=== PATIENT | male | born 1940 | race Caucasian/White ===

== ENCOUNTER → 2023-11-03 10:22 | Outpatient (REF) | payer OTHER, SELFPAY | LOC: RCS 10:22 | PROVIDERS: ATTENDING PHYSICIAN Internal Medicine Cardiovascular Disease; FAMILY PHYSICIAN Family Medicine | DX: I35.0 Nonrheumatic aortic (valve) stenosis (principal); I34.0 Nonrheumatic mitral (valve) insufficiency | CPT/HCPCS: 93306; Q9957 ==

== ENCOUNTER → 2023-12-07 15:34 | Outpatient (REF) | payer OTHER, SELFPAY | LOC: HWRAD 15:34 | PROVIDERS: ATTENDING PHYSICIAN Internal Medicine Hematology & Oncology; FAMILY PHYSICIAN Family Medicine | DX: C61 Malignant neoplasm of prostate (principal); M85.88 Other specified disorders of bone density and structure, other site | CPT/HCPCS: 77080 ==

== ENCOUNTER 2024-02-05 09:04 | Outpatient (RCR) | payer OTHER, SELFPAY | END 2024-02-05 23:59 | disposition home or self-care (01) | LOC: RPT 09:04 | PROVIDERS: ATTENDING PHYSICIAN Radiology Radiation Oncology; FAMILY PHYSICIAN Family Medicine | DX: N39.41 Urge incontinence (principal); R15.9 Full incontinence of feces; C61 Malignant neoplasm of prostate; M62.89 Other specified disorders of muscle; Z73.6 Limitation of activities due to disability | CPT/HCPCS: 97140; 97162; 97530 ==

== ENCOUNTER 2024-03-06 12:08 | Outpatient (RCR) | payer OTHER, SELFPAY | END 2024-03-06 23:59 | disposition home or self-care (01) | LOC: RPT 12:08 | PROVIDERS: ATTENDING PHYSICIAN Radiology Radiation Oncology; FAMILY PHYSICIAN Family Medicine | DX: C61 Malignant neoplasm of prostate (principal); M62.89 Other specified disorders of muscle; N39.41 Urge incontinence; R15.9 Full incontinence of feces; Z73.6 Limitation of activities due to disability; R35.0 Frequency of micturition; I89.0 Lymphedema, not elsewhere classified | CPT/HCPCS: 97140; 97530 ==

== ENCOUNTER 2024-03-29 10:35 | Inpatient (IN) | payer OTHER, SELFPAY ==
[2024-03-29] VITALS (17 sets, daily range): BP systolic 125–152; BP diastolic 47–100; PULSE 70; O2SAT 95; BMI 27.8; BMI 27.4
[2024-03-29 07:02] LABS: % Basophils 0.5 % (0-2); % Eosinophils 2.5 % (0-6); % Immature Granulocytes 0.9 % (0-0.5); % Lymphocytes 13.9 % (20.5-51.1); % Monocytes 6.4 % (1.7-9.3); % Neutrophils 75.8 % (42.2-75.2); Absolute Eosinophils 0.1 10^3/uL (0-0.7); Absolute Lymphocytes 0.6 10^3/uL (1.2-3.4); Absolute Monocytes 0.3 10^3/uL (0.1-0.6); Absolute Neutrophils 3.3 10^3/uL (1.4-6.5); Hemoglobin 11.9 g/dL (13.0-18.0); Mean Corp Hgb Conc. 32.2 g/dL (33.0-37.0); Mean Corpuscular Hgb 29.1 pg (27.0-31.0); Mean Corpuscular Volume 90.5 fL (80.0-94.0); Mean Platelet Volume 10.3 fL (7.4-10.4); Nucleated Red Blood Cells % 0 % (-); Platelet Count 116 10^3/uL (130-400); Red Blood Cell Count 4.09 10^6/uL (4.70-6.10); Red Cell Dist. Width 14.6 % (11.5-14.5); White Blood Cell Count 4.4 10^3/uL (4.8-10.8)
[2024-03-29 07:08] LABS: ALT (SGPT) 34 U/L (0-50); AST (SGOT) 37 U/L (17-59); Albumin 3.9 g/dl (3.5-5.0); Alkaline Phosphatase 83 U/L (38-126); Blood Urea Nitrogen 24 mg/dl (9-20); Calcium 8.9 mg/dl (8.4-10.2); Carbon Dioxide 27 mmol/L (22-30); Chloride 108 mmol/L (98-107); Estimated Creatinine Clearance 48 ml/min; Glucose 111 mg/dl (70-99); Potassium 4.3 mmol/L (3.5-5.1); Sodium 147 mmol/L (135-145); Total Bilirubin 0.3 mg/dl (0.2-1.3); Total Protein 6.4 g/dl (6.3-8.2); eGFR > 60.00
[2024-03-29 07:19] LABS: NT-proBNP 7440 pg/ml; Troponin I 0.022 ng/ml
--- NOTE | 2024-03-29 08:12 | ED.GENMED ---
History of Present Illness
General
Chief Complaint: Breathing Problem
Source: patient and spouse
Time Seen by Provider: 03/29/24 06:06
History of Present Illness
History of Present Illness:
84-year-old male presents after he became more short of breath last night. Patient does have a history of COPD. The patient states he has been more short of breath over the last 2 to 3 days. Last night it was worse. It is worse when he lays
back. No leg swelling. No chest pain. Little bit of dry cough. No fevers. No hemoptysis. He does wear oxygen at night at home. The patient also admits that NPT recently his heart rate has been slow. They discussed it with cardiology who was
planning on putting a Holter monitor on
Past History
Past History
ED Past Medical History: Cancer, COPD, CVA, HTN, Hypercholesterolemia, NIDDM and Psychiatric
ED Past Surgical History: Other (skin)
Social History
Tobacco: Former smoker
Alcohol: None
Drug: None
Personal:
Living: with family
Employment: Retired
Phy Exam
Physical Exam
Physical Exam:
CONSTITUTIONAL Patient alert and oriented to person, place and time. Well-appearing. Vital signs reviewed.
HEAD atraumatic, normocephalic.
EYES eyelids normal to inspection, Pupils equally round and reactive to light, Extraocular muscles intact, Conjunctiva normal, Sclera normal.
NECK normal range of motion, Trachea midline, no jugular venous distention.
RESPIRATORY CHEST No respiratory distress noted, Chest expansion equal, fine crackles at bilateral bases.
CARDIOVASCULAR regular rate and rhythm, Heart sounds normal.
ABDOMEN abdomen nontender, Bowel sounds normal. No distention.
BACK normal inspection, no obvious deformities
UPPER EXTREMITY range of motion normal, Motor strength normal, no cyanosis, no edema.
LOWER EXTREMITY range of motion normal, Motor strength normal, no cyanosis, no edema.
NEURO Speech normal, No focal motor deficits, Ward coma scale 15, Memory normal, Cranial Nerves intact to screening exam.
SKIN skin warm, dry, and normal in color.
Scores
Heart Failure Risk
Heart Failure Risk Score: Yes
History of Stroke or TIA: Yes
History of intubation for respiratory distress: No
Heart rate on ED arrival >/= 110: No
SaO2 <90% on arrival on room air: Yes
HR >/=110 during 3min walk test (or too ill to perform test): Yes
ECG has acute ischemic changes: No
Urea >/=12mmol/L (BUN 33.6mg/dL): No
Serum CO2>/=35mmol/L: No
Troponin I or T elevated to HI Level (0.4mg/dL): No
NT-proBNP >/=5,000ng/L (5,000pg/ml): Yes
HF Risk Score: 5
Admission Status: VERY HIGH RISK 39.8% Consider admission to hospital
Course
Orders/Labs/Results
Orders:
Orders
03/29/24 05:32
Electrocardiogram (*1) Urgent
Reason for Study: Other
Other Reason for Exam: Respiratory Distress
Cardiac Monitoring- Treatment ONCE
EKG- Treatment ONCE
IV Insert/Care/Rem.- Treatment PRN
CR Chest - 2 Views Urgent
Comment:
Reason For Exam: respiratory distress
O2 Therapy [RESP] Urgent
Titrate/Wean O2 to maintain O2 sat greater than (%): 93
Special Instructions: TO MAINTAIN CONTINUOUS O2 SATS >/= 93%
Pulse Ox/cont/shift [RESP] Urgent
Quantity: 1
Special Instructions: continuous pulse ox
03/29/24 05:42
Complete Blood Count/With Diff Urgent
Comprehensive Metabolic Panel Urgent
NT-proBNP Urgent
Troponin I Urgent
03/29/24 08:12
Dexamethasone Sod Phosphate [Decadron] 10 mg IV NOW STA
Furosemide [Lasix] 40 mg IV NOW STA
03/29/24 09:36
CARDIOLOGY CONSULT Routine
Consulting Provider: Lacey Ferro
Was physician already notified: Yes
PULMONARY CONSULT Routine
Consulting Provider: Ronni Lozano
Was physician already notified: Yes
03/29/24 09:47
Admit/Transfer Patient As Directed
Co-Sign Provider:
Level of Care: Inpatient admission
Assign to:: Telemetry
Physician / Group: lalo downs
Diagnosis: SOB, CHF, poss COPD
Reason for Telemetry: Subacute Heart Failure
Date to Stop Telemetry: 03/31/24
Time to Stop Telemetry: 11:00
Reason for Hospitalization: SOB, CHF, poss COPD
Expected length of stay greater than two midnights?: Yes
ELOS- Estimated Length of Stay in days: 2
I certify the patient meets the requirements for IP care: Yes
PRN Pain Medication Management As Directed
May give lesser potent ordered pain med per pt: Yes
preference::
Protocol:: Medication orders for pain may be administered in a
manner that supports deferring to patient preference
when the pt is:
- Requesting an ordered lesser potent pain medication.
Least to most potent pain medications are defined
as: acetaminophen < NSAID < tramadol < opioids
(morphine, oxycodone, hydromorphone).
- Requesting a lesser dose of the same medication IF
ORDERED.
- Requesting a less intrusive route of administration
if both routes are prescribed by the provider (PO <
IV).
03/29/24 09:51
Code Status As Directed
Resuscitation Status: Full Code
03/29/24 Lunch
Cholesterol Lowering
At Your Request: Full Participation
Cholesterol Lowering: Sodium, 2 Gram
03/29/24 10:37
Acetaminophen [Tylenol] 650 mg PO Q6HPRN PRN
Ipratropium/Albuterol Sulfate [Duoneb] 3 ml INH R Q4HPRN PRN
Ondansetron Injectable [Zofran] 4 mg IV Q6HPRN PRN
Oxycodone [Roxicodone] 5 mg PO Q6HPRN PRN
relugolix [Orgovyx] See Dose Instructions PO DAILY
03/29/24 10:37
HF DIETARY CONSULT Routine
HF EDUCATOR CONSULT Routine
Comment:
Activity As Directed
Activity Level: Ambulate
Intake/ Output As Directed
Frequency: Per unit guidelines
Patient Education As Directed
Type: CHF folder
Comment: give on admission. Document in Interdisciplinary Education record
Sleep Apnea Assessment by RN As Directed
Comment:
Physician Instructions:
Vital Signs As Directed
Frequency: Other
Additional Instructions:: Q12 or per unit guidelines if more frequent.
Weight As Directed
Frequency: Daily
Type of Scale: Standing Scale
Comment: Daily morning weight. If unable to stand, use balanced bed scale.
Weight As Directed
Frequency: Once
Type of Scale: Standing Scale
Comment: Upon Admission. If unable to stand, use balanced bed scale.
Pulse Ox/cont/shift [RESP] Routine
Quantity: 1
Special Instructions: Daily pulse oximetry at rest. If greater than 92% at rest also obtain pulse oximetry
while ambulating as tolerated.
Pt Eval And Treat Routine
Activity Level: Ambulate
03/29/24 11:00
Apixaban [Eliquis] 5 mg PO BID
Atorvastatin [Lipitor] 40 mg PO DAILY
Escitalopram Oxalate [Lexapro] 10 mg PO DAILY
Metoprolol Xl [Toprol Xl] 25 mg PO DAILY
03/29/24 11:30
Tamsulosin [Flomax] 0.4 mg PO BID
03/29/24 16:00
Furosemide [Lasix] 40 mg IV BID AT 0800,1600
03/30/24 06:00
Basic Metabolic Panel IN AM
Magnesium IN AM
03/30/24 08:00
Lisinopril [Zestril] 10 mg PO DAILY
03/31/24 06:00
Basic Metabolic Panel IN AM
03/31/24 11:00
DC Protocol for Telemetry ONCE
04/01/24 06:00
Basic Metabolic Panel IN AM
Abnormal Lab Results
03/29/24
05:42
WBC 4.4 L 10^3/uL
(4.8-10.8)
RBC 4.09 L 10^6/uL
(4.70-6.10)
Hgb 11.9 L g/dL
(13.0-18.0)
Hct 37.0 L %
(39.0-52.0)
MCHC 32.2 L g/dL
(33.0-37.0)
RDW 14.6 H %
(11.5-14.5)
Plt Count 116 L 10^3/uL
(130-400)
Absolute Lymphs (auto) 0.6 L 10^3/uL
(1.2-3.4)
Immature Gran % 0.9 H %
(0-0.5)
Neutrophils % 75.8 H %
(42.2-75.2)
Lymphocytes % 13.9 L %
(20.5-51.1)
Sodium 147 H mmol/L
(135-145)
Chloride 108 H mmol/L
(98-107)
BUN 24 H mg/dl
(9-20)
Glucose 111 H mg/dl
(70-99)
03/29/24 05:42
03/29/24 05:42
Vital Signs
Initial and Last Documented VS:
Initial Vital Signs
Temp Pulse Resp BP Pulse Ox
98.9 F 39 24 139/75 89
03/29/24 05:28 03/29/24 05:28 03/29/24 05:28 03/29/24 05:28 03/29/24 05:28
Last Documented Vital Signs
Temp Pulse Resp BP Pulse Ox
98.9 F 81 25 139/100 95
03/29/24 05:28 03/29/24 12:00 03/29/24 12:00 03/29/24 11:00 03/29/24 12:48
MDM/Problems Addressed
MDM/Problems Addressed:
Hypoxia, dyspnea, acute COPD, acute decompensated congestive heart failure
*Radiology
Radiology exam reviewed: preliminary read by ED provider (Bilateral interstitial infiltrates, suspected CHF)
*Pulse Oximetry
Patient hypoxic: no
*EKG
Interpreted by ED Provider?: Yes
Interpretation: abnormal
Rate: normal
Rhythm: sinus and PVC's
Ischemia: non-specific ST changes
*Building Services Technician Interpretation
Rate: normal
Interpretation: abnormal
Rhythm: sinus
*Critical Care Note
Total Time (30-74mins, 75-104mins- exclusive of procedures): Not Applicable
Data Reviewed
Review of Other/Old Records Reveals: Progress Notes and Discharge Summary (Previous discharge summary reviewed)
Source: patient and family
Prescriptions/Medications Considered But Not Given:
Considered antibiotics but afebrile, no infiltrates
Patient Management
Discussion with other providers: Hospitalist
Escalation/DeEscalation of care consider admission/obs:
Does have bilateral interstitial traits on chest x-ray. Question fibrosis versus CHF. BNP is elevated and has had a orthopnea. Trial IV Lasix plus IV Decadron in light of COPD history. Admit. Is slightly hypoxic. The patient did arrive in
[place] but now is just throwing occasional PVCs.
ED Attending Note
-
Portions of this chart may have been created with voice recognition software.� Occasional wrong word or��sound alike� substitutions may have occurred due to the inherent limitations of voice recognition software.
Discharge Plan
Departure
Patient Disposition: Admit
Date of Disposition: 03/29/24
Time of Disposition: 08:23
Admit to: Telemetry
Presentation/result/management discussed w/ accepting MD/DO: Hospitalist
Discharge Problem:
CHF (congestive heart failure), COPD (chronic obstructive pulmonary disease), Hypoxia
Interventions
Interventions:
*Risk Screen - Suicide Last Done: 03/29/24 05:51
*General Assessment Last Done: 03/29/24 05:51
*Neglect/Abuse Screening Last Done: 03/29/24 05:51
ED- Fall Risk Assessment Last Done: 03/29/24 05:51
*ED COVID-19 Vaccine History Last Done: 03/29/24 05:51
ED- Cardiac Assessment Last Done: 03/29/24 07:26
ED- Pulmonary Assessment Last Done: 03/29/24 07:26
[2024-03-29] MEDS: DECADRON 10 MG IV (08:27)
[2024-03-29] MEDS: LASIX 40 MG IV ×2 (08:27→16:28)
--- NOTE | 2024-03-29 09:40 | HPS.HSE ---
Family Physician
-
Family Physician: Glenn Hanson
Chief Complaint
-
Shortness of breath
History of Present Illness
84-year-old male with a past medical history of COPD, SAÚL on CPAP, coronary artery disease, severe aortic stenosis, prostate cancer, hypertension, and hyperlipidemia presents with a 1 day history of shortness of breath. Patient also reports
orthopnea, abdominal bloating, and a 4 pound weight gain. Denies paroxysmal nocturnal dyspnea. He also has a cough, which occurs mostly at night. He denies chest pain, lightheadedness, dizziness. No fever, no vomiting. No black or bloody
stools. He usually wears oxygen 2 L at night.
Medical History
Past Medical History
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
aortic stenosis, prostate cancer)
Past Surgical History: Reports None and Other (Mohs microsurgery of the right leg, cataract extraction, bilateral hernia repair as a child)
Social History
Tobacco: Former Smoker
Alcohol: Daily
Drug: None
Personal:
Living: With Family
Family History
Family History: Not pertinent
Allergies / Home Medications
Allergies reflects when Allergies were last updated in [facility].
Home Medications with original date entered in [facility]
Allergy/Medication List:
Allergies
Allergy/AdvReac Type Severity Reaction Status Date / Time
No Known Allergies Allergy Verified 03/29/24 05:28
Home Medications Table - record
�Medication �Instructions �Recorded �Confirmed
apixaban 5 mg tablet (Eliquis) 5 mg PO BID Blood Clot 10/17/22 03/29/24
Prevention/Tx
metoprolol succinate 25 mg 25 mg PO DAILY Heart 10/17/22 03/29/24
tablet,extended release 24 hr Disease/Condition
potassium chloride 20 mEq 20 meq PO DAILY #90 tabs 10/17/22 03/29/24
tablet,extended release
tamsulosin 0.4 mg capsule 0.4 mg PO BID Urinary Issue 10/17/22 03/29/24
albuterol sulfate 90 mcg/actuation 2 puff inhalation R Q4HPRN PRN 01/16/23 03/29/24
aerosol inhaler shortness of breath or wheezing
atorvastatin 40 mg tablet (Lipitor) 40 mg PO DAILY High Cholesterol 01/16/23 03/29/24
furosemide 40 mg tablet (Lasix) 40 mg PO DAILY Fluid 01/16/23 03/29/24
Retention/Swelling
escitalopram oxalate 10 mg tablet 10 mg PO DAILY Mental 06/09/23 03/29/24
Health/Anxiety
fluticasone fur. 100 mcg-umeclid 1 inh inhalation R DAILY 06/09/23 03/29/24
62.5 mcg-vilant 25 mcg Lung/Breathing Issues
inhalat.powder (Trelegy Ellipta)
lisinopril 10 mg tablet 10 mg PO DAILY Blood Pressure 06/09/23 03/29/24
relugolix 120 mg tablet (Orgovyx) 120 mg PO DAILY Cancer 06/09/23 03/29/24
Review of Systems
-
A 12 point ROS was completed and negative except as noted: Yes
Physical Exam
Vital Signs
Vital Signs
Temp Pulse Resp BP Pulse Ox
98.9 F 60 24 147/71 96
03/29/24 05:28 03/29/24 09:00 03/29/24 09:00 03/29/24 09:00 03/29/24 09:00
Physical Exam
General: Well Developed, Well Nourished and No Apparent Distress
HEENT: NormoCephalic, Anicteric and Moist mucous membranes
Respiratory: Crackles
GI: Soft, Non Tender, Non Distended and Normal Bowel Sounds
Musculoskeletal: No Clubbing, No Cyanosis, Edema, Left Lower Extremity and Edema, Right Lower Extremity
Neuro: Awake, Alert and Oriented
Psych: Calm
Laboratory Results
-
03/29/24 05:42
03/29/24 05:42
Laboratory Results
Total Bilirubin 0.3 mg/dl (0.2-1.3) 03/29/24 05:42
AST 37 U/L (17-59) 03/29/24 05:42
ALT 34 U/L (0-50) 03/29/24 05:42
Alkaline Phosphatase 83 U/L (38-126) 03/29/24 05:42
Troponin I 0.022 ng/ml 03/29/24 05:42
Impression/Plan
-
HPI: 84-year-old male with a past medical history of COPD, SAÚL on CPAP, coronary artery disease, severe aortic stenosis, prostate cancer, hypertension, and hyperlipidemia presents with a 1 day history of shortness of breath. Patient also reports
orthopnea, abdominal bloating, and a 4 pound weight gain. Denies paroxysmal nocturnal dyspnea. He also has a cough, which occurs mostly at night. He denies chest pain, lightheadedness, dizziness. No fever, no vomiting. No black or bloody
stools. He usually wears oxygen 2 L at night.
Assessment/plan:
#Acute heart failure with reduced ejection fraction
Echo 11/03/2023: EF 40 to 45%. Mildly reduced LV systolic function. Apical and inferoapical akinesis. Mild concentric LVH. Stage II DD. Severe aortic stenosis peak/mean gradient 68/441 mmHg, SHELLEY 0.8 cm�. Moderate TR.
Consult cardiology, diuresed with Lasix 40 mg IV twice daily, trend creatinine, trend daily weights
#Acute hypoxic respiratory insufficiency
Patient usually wears oxygen 2 L at night and as needed during the day
He is currently requiring 2 L, wean as tolerated
#Hypernatremia
Trend sodium with diuresis
#Acute on chronic COPD exacerbation
#Pulmonary fibrosis
Status post dexamethasone 10 mg IV x 1 in the ED
Consult pulmonology, continue bronchodilators
#Obstructive sleep apnea
CPAP HS
#Normocytic anemia
Trend hemoglobin
#Prostate cancer
Outpatient follow-up
#History of left ventricular apical thrombus in the past
Continue Eliquis
#Anxiety/depression
Continue SSRI
#BPH
Continue Flomax
DVT prophylaxis�Eliquis
Full code
Updated at bedside 03/29
Total time spent to see the patient on the floor, examine the patient, review data and lab results, discuss treatment plan with patient, nursing staff around 77 minutes.
--- NOTE | 2024-03-29 10:24 | CON.PUL ---
Consultation
Consultation Request
Date/Time Consultation Requested: 03/29/2024-10 AM
Date/Time Consultation Performed: 03/29/2024-11 AM
Requesting Provider: Hospitalist
Performing Provider: Dr. Lozano
Reason for Consultation: Shortness of breath
Medical History
-
Chief Complaint: Shortness of breath
History of Present Illness:
84-year-old male patient with underlying COPD on nocturnal oxygen followed by Dr. Henderson as well as hypertension, hyperlipidemia diabetes who was recently discharged from the hospital after pneumonia presents with increasing shortness of breath,
probable CHF and possible COPD exacerbation-pulmonary was consulted for possible COPD exacerbation 03/29/2024. Patient feels improved with diuresis and oxygen in the emergency room. He denies any chest pain, chest tightness, increased wheezing,
chronic chest congestion, productive cough, mopped assist, reflux, abdominal pain, and has trace lower extremity edema compared to his baseline.
Past Medical History
Past Medical History: None (COPD. Nocturnal hypoxemia on oxygen. SAÚL on CPAP. CVA. Hypertension. Hyperlipidemia. Diabetes. Anxiety. Prostate cancer. Hernia repair. Cataract surgery. Basal cell Mohs procedure.)
Social History
Tobacco: Former Smoker (79-nurq-g[employer] smoker-quit 30 years ago)
Alcohol: None
Drug: None
Personal:
Living: With Family
Occupational Exposures: No known asbestos exposure
Environmental Exposures: No known tuberculosis exposure
Family History
Family History: Other (Father-Parkinson's disease. Mother-CAD)
Allergies / Home Medications
Allergies
Allergy/AdvReac Type Severity Reaction Status Date / Time
No Known Allergies Allergy Verified 03/29/24 05:28
Home Medications
�Medication �Instructions �Recorded �Confirmed �Last Taken �Type
apixaban 5 mg tablet (Eliquis) 5 mg PO BID Blood Clot 10/17/22 03/29/24 03/28/24 History
Prevention/Tx
metoprolol succinate 25 mg 25 mg PO DAILY Heart 10/17/22 03/29/24 03/28/24 History
tablet,extended release 24 hr Disease/Condition
potassium chloride 20 mEq 20 meq PO DAILY #90 tabs 10/17/22 03/29/24 03/28/24 Rx
tablet,extended release
tamsulosin 0.4 mg capsule 0.4 mg PO DAILY Urinary Issue 10/17/22 03/29/24 03/28/24 History
albuterol sulfate 90 mcg/actuation 2 puff inhalation R Q4HPRN PRN 01/16/23 03/29/24 Unknown History
aerosol inhaler shortness of breath or wheezing
atorvastatin 40 mg tablet (Lipitor) 40 mg PO DAILY High Cholesterol 01/16/23 03/29/24 03/28/24 History
furosemide 40 mg tablet (Lasix) 40 mg PO DAILY Fluid 01/16/23 03/29/24 03/28/24 History
Retention/Swelling
escitalopram oxalate 10 mg tablet 10 mg PO DAILY Mental 06/09/23 03/29/24 03/28/24 History
Health/Anxiety
fluticasone fur. 100 mcg-umeclid 1 inh inhalation R DAILY 06/09/23 03/29/24 03/28/24 History
62.5 mcg-vilant 25 mcg Lung/Breathing Issues
inhalat.powder (Trelegy Ellipta)
lisinopril 10 mg tablet 10 mg PO DAILY Blood Pressure 06/09/23 03/29/24 03/28/24 History
relugolix 120 mg tablet (Orgovyx) 120 mg PO DAILY Cancer 06/09/23 03/29/24 03/28/24 History
Review of Systems
-
Unable to Obtain full review of systems at this time due to: Other (Per HPI)
Vitals / Labs / Diagnostic Testing
Vital Signs
Temp Pulse Resp BP Pulse Ox
98.9 F 60 24 147/71 96
03/29/24 05:28 03/29/24 09:00 03/29/24 09:00 03/29/24 09:00 03/29/24 09:00
Lab Data
03/29/24 05:42
03/29/24 05:42
Diagnostic Testing:
Physical Exam
-
Exam:
Well-nourished and well-developed in no apparent distress
HEENT-atraumatic, normocephalic
Neck-supple, no JVD, no bruit
Heart-regular rate and rhythm-no murmurs, rubs or gallops
Chest with diminished breath sounds, hyperinflation, basilar crackles, prolonged expiratory time and no wheezes
Back without tenderness
Abdomen-soft, nontender, nondistended, no hepatosplenomegaly
Extremities-no cyanosis, clubbing, trace to 1+ lower extremity edema
Integument-intact, no rashes, lesions or ecchymosis
Neurology-alert and oriented, nonfocal motor and sensory exam
Assessment
-
84-year-old male patient with underlying COPD on nocturnal oxygen followed by Dr. Henderson as well as hypertension, hyperlipidemia diabetes who was recently discharged from the hospital after pneumonia presents with increasing shortness of breath,
probable CHF and possible COPD exacerbation-pulmonary was consulted for possible COPD exacerbation 03/29/2024.
Hypoxemic respiratory failure-combined CHF/COPD
CHF-reduced EF-proBNP 7440
COPD with acute exacerbation
Leukopenia-WBCs 4.4
Pgydkw-vkbupuxvyi-eovrbgvhyi 11.9
Mild thrombocytopenia-platelet count 116
Mild hyponatremia-serum sodium 147
Mild hyperglycemia
Conditions present prior to admission:
COPD.
Nocturnal hypoxemia on oxygen.
SAÚL on CPAP.
CVA.
Hypertension.
Hyperlipidemia.
Diabetes.
Anxiety.
Prostate cancer.
Hernia repair. Cataract surgery. Basal cell Mohs procedure.
Plan
Respiratory decompensation likely a combination of CHF and COPD with a possible interstitial lung disease/pulmonary fibrosis component
Supplemental oxygen
Nebulizers if needed-currently not bronchospastic
Aspiration precautions
Incentive spirometry
Follow radiographically
Diuresis as tolerated
Monitor renal function, electrolytes, intake/output, lower extremity edema and weight
Replace electrolytes as needed
Follow hemoglobin
Transfuse as needed
Monitor platelet count
Replace electrolytes
Monitor blood sugar
Insulin supplementation as needed
DVT prophylaxis-none Eliquis
Nutrition
Early mobilization
Reviewed with ED nursing as well as at the bedside
Patient last saw Dr. Henderson 07/12/2023-will ask to follow back up with PFTs (had canceled 07/26/2023 and 11/07/2023 appointments)
Diagnostic data:
Chest x-ray 06/14/2023-mild bibasilar opacification
Chest x-ray 03/29/2024-changes of emphysema and fibrosis
Echocardiogram 09/29/22 EF 45-50%. Left ventricular apical thrombus no longer seen clearly. Mild MR. Moderate aortic stenosis. Gradients 42/25. Mild aortic regurgitation. Aortic valve area 1.0 cm 2. Mild pulmonary hypertension PA systolic 39 mmHg.
Pulmonary function studies-05/05/23: Spirometry demonstrated moderate obstructive lung disease. The forced vital capacity was 2.71 L or 79% of predicted. The FEV1 was 1.44 L or 60% of predicted. The FEV1/FVC ratio was 53%. There was a 19%
improvement in the FEV1 postbronchodilator. The lung volumes demonstrate mild restriction with a total lung capacity of 4.7 L or 72% of predicted. Therefore, mixed obstructive and restrictive lung disease was present. The diffusing capacity was
severely reduced at 7.9 or 35% of predicted consistent with a severe gas exchange deficit.
Data Reviewed
-
PFT: Report reviewed by me
EKG: Report reviewed by me
Radiology: Image personally visualized and interpreted and Report reviewed by me
CT Scan: Report reviewed by me
Medical Tests (Nuc Med, Echo etc): Report reviewed by me
Labs: Labs reviewed by me
Old Records: Reviewed
Total Time Spent with Patient (in minutes): 65
[2024-03-29] MEDS: TOPROL XL 25 MG PO (11:40)
[2024-03-29] MEDS: LEXAPRO 10 MG PO (11:40)
[2024-03-29] MEDS: LIPITOR 40 MG PO (11:41)
[2024-03-29] MEDS: FLOMAX 0.4 MG PO ×2 (11:41→20:22)
[2024-03-29] MEDS: ELIQUIS 5 MG PO ×2 (11:41→20:22)
--- NOTE | 2024-03-29 12:02 | CON.CAR ---
Addendum entered and electronically signed by Camron Lopez MD 03/29/24 19:12:
84-year-old man well-known to me, with severe aortic stenosis that we had been following medically, anticipating TAVR evaluation in 2024, with LV dysfunction suggesting anterior UT but nonobstructive CAD, with history of LV thrombus, now admitted
with suspected multifactorial dyspnea with a component of acute on chronic HFrEF onset over the last few days
PMH/PSH/FH/SH: Reviewed
Allergies none
Review of systems negative except as above
132/85, pulse 63, respirate 20, weight is 81.6 kg, urine output today 2.6 L, currently no distress, was seen initially in ER, few rales in bases, loud aortic stenosis murmur, JVD modestly elevated, carotids with bruits, abdomen benign extremities
with 1+ to 2+ edema,
Hemoglobin 11.9, BUN and creatinine 24 and 1.1, proBNP 7440, troponin 0.022
Chest x-ray vascular congestion, blunting of exterior work helper, cardiomegaly, sinus rhythm, PVCs, low voltage, nonspecific ST and T changes
Echo today: EF 35-40%, slightly reduced compared to prior, severe aortic stenosis, peak and mean gradient 64 and 36 mmHg, aortic valve area 0.8 cm2, pulmonary artery pressure 65-70, increased compared to prior
Impression:
Acute heart failure with reduced EF
COPD
Recent pneumonia
Severe aortic stenosis
History of LV thrombus
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
Hypertension
Hypercholesterolemia
Prostate cancer status post XRT, on Orgovyx
Mild cognitive impairment
Plan:
He presents with acute HFrEF, likely related to aortic stenosis.
His current echo shows a modest decline in his ejection fraction. Mean gradient across the aortic valve has dropped a bit and pulmonary artery pressure is increased.
He is already dramatically better with IV diuretics.
Optimization of GDMT will be challenging in light of his aortic stenosis.
We will need to confirm with radiation oncology/oncology that his prognosis regarding prostate cancer is good.
Presuming this is the case, this admission should trigger an evaluation for TAVR.
Original Note:
Consultation
Consultation Request
Date/Time Consultation Requested: 03/29/2024
Date/Time Consultation Performed: 03/29/2024
Requesting Provider: Dr. Cee
Performing Provider: Sophia Bonilla PA-C for Dr. Camron Lopez
Reason for Consultation: Shortness of breath, cough
Medical History
-
History of Present Illness:
Patient is an 84-year-old male with past medical history significant for moderate to severe aortic stenosis, heart failure with preserved ejection fraction, hypertension, hyperlipidemia, PVCs/PACs, diabetes, COPD/emphysema with nocturnal oxygen,
SAÚL/CPAP, TIA and prostate cancer came to [facility] 03/29/2024 with progressively worsening shortness of breath. Patient reports breathing has gotten worse over the last 2 to 3 days and last night he was unable to lie flat due to shortness of breath and
cough. He also notes occasional exertional chest pressure and exertional dizziness. He denies chest pain at rest, shortness of breath at rest fevers or chills. In early March he has been working with physical therapy who noted he was
hypotensive and bradycardic as outpatient. His amlodipine was discontinued 03/25/2024. Plan was for outpatient monitor which patient has yet to schedule. Workup in emergency department includes EKG showing sinus rhythm with PVCs, runs of
ventricular bigeminy. Chest x-ray shows chronic emphysema/fibrosis. proBNP 7440. Troponin was negative. Patient was given dose of IV Lasix 40 mg and IV Decadron. Cardiology being consulted for concern over heart failure exacerbation. Patient
received dose of IV Lasix and IV Decadron in emergency department.
PMH:
COPD/emphysema
SAÚL on CPAP
Nocturnal hypoxemia on oxygen
Nonobstructive CAD by cath 10/17/22
Severe by echo 10/2023
Prostate cancer stage 3c, on Lupron, scheduled to start radiation therapy 06/14/23
HTN
DM 2
ETOH use disorder without signs of withdrawal
Hyperlipidemia
h/o TIA
h/o PACs and PVCs
Past Medical History
Past Medical History: Other (in HPI)
Past Surgical History: Orthopedic and Other (Cataract extraction, hernia repair, basal cell/Mohs procedure)
Social History
Tobacco: Former Smoker
Alcohol: Other (1-2 drinks four or more times a week)
Drug: None
Personal:
Living: With Family
Family History
Family History: CAD (mother) and Other (Parkinson's disease)
Allergies / Home Medications
Allergy/AdvReac Type Severity Reaction Status Date / Time
No Known Allergies Allergy Verified 03/29/24 05:28
�Medication �Instructions �Recorded �Confirmed �Type
apixaban 5 mg tablet (Eliquis) 5 mg PO BID Blood Clot 10/17/22 03/29/24 History
Prevention/Tx
metoprolol succinate 25 mg 25 mg PO DAILY Heart 10/17/22 03/29/24 History
tablet,extended release 24 hr Disease/Condition
potassium chloride 20 mEq 20 meq PO DAILY #90 tabs 10/17/22 03/29/24 Rx
tablet,extended release
tamsulosin 0.4 mg capsule 0.4 mg PO BID Urinary Issue 10/17/22 03/29/24 History
albuterol sulfate 90 mcg/actuation 2 puff inhalation R Q4HPRN PRN 01/16/23 03/29/24 History
aerosol inhaler shortness of breath or wheezing
atorvastatin 40 mg tablet (Lipitor) 40 mg PO DAILY High Cholesterol 01/16/23 03/29/24 History
furosemide 40 mg tablet (Lasix) 40 mg PO DAILY Fluid 01/16/23 03/29/24 History
Retention/Swelling
escitalopram oxalate 10 mg tablet 10 mg PO DAILY Mental 06/09/23 03/29/24 History
Health/Anxiety
fluticasone fur. 100 mcg-umeclid 1 inh inhalation R DAILY 06/09/23 03/29/24 History
62.5 mcg-vilant 25 mcg Lung/Breathing Issues
inhalat.powder (Trelegy Ellipta)
lisinopril 10 mg tablet 10 mg PO DAILY Blood Pressure 06/09/23 03/29/24 History
relugolix 120 mg tablet (Orgovyx) 120 mg PO DAILY Cancer 06/09/23 03/29/24 History
Review of Systems
-
History Source: Patient
All other systems: Negative unless noted
Physical Exam
Vital Signs
Temp Pulse Resp BP Pulse Ox
98.9 F 81 25 139/100 90
03/29/24 05:28 03/29/24 12:00 03/29/24 12:00 03/29/24 11:00 03/29/24 11:15
GEN: No distress, awake, Ox3, lying in bed on oxygen
HEENT: supple, anicteric, mmm
LUNGS: Crackles at bilateral bases right greater than left, decreased breath sounds throughout, no wheezes; on 2LPM O2
CV: Reg with frequent ectopy, S1/S2, 2/6 harsh radiating syst murmur
ABD: soft, BS+, NT/ND
EXT: Trace to +1 bilateral lower extremity edema, no clubbing or cyanosis
NEURO: Gross non-focal
SKIN: No rash, warm, dry, pink
Lab Results
03/29/24 05:42
03/29/24 05:42
Troponin I 0.022 ng/ml 03/29/24 05:42
Ncv-V-Izklgrborcs Pept 7440 pg/ml 03/29/24 05:42
Impression / Plan
-
PCP: Dr. Hanson
Cardiology: Dr. Lopez
Impression:
Presents 03/29/2024 with progressively worsening shortness of breath, cough, orthopnea/PND
Acute Hypoxemic respiratory sufficiency
COPD exacerbation
Acute HFmrEF
COPD/emphysema
SAÚL on CPAP
Nocturnal hypoxemia on oxygen
Nonobstructive CAD by cath 10/17/22
Severe by echo 10/2023
Prostate cancer stage 3c, on Lupron, scheduled to start radiation therapy 06/14/23
HTN
DM 2
ETOH use disorder without signs of withdrawal
Hyperlipidemia
h/o TIA
h/o PACs and PVCs
Echo 11/03/2023: EF 40 to 45%. Mildly reduced LV systolic function. Apical and inferoapical akinesis. Mild concentric LVH. Stage II DD. Severe aortic stenosis peak/mean gradient 68/441 mmHg, SHELLEY 0.8 cm�. Moderate TR. PAP 49 mmHg, ascending
aorta dilation 4.1 cm
Echo 09/29/22: EF 45-50%, previously identified LV apical thrombus no longer seen, mild MR, mod with peak/mean 42/25 mmHg and mild aortic regurgitation with SHELLEY 1.0 cm sq
Plan:
-Presents 03/29/2024 with progressively worsening shortness of breath, cough, orthopnea/PND
-Acute Hypoxemic respiratory sufficiency likely multifactorial secondary to COPD exacerbation acute heart failure exacerbation
-Acute heart failure exacerbation with mildly reduced ejection fraction, proBNP 7440
-Patient received IV Lasix 40 mg in emergency department. Continue on monitor response. Patient on Lasix 20 mg twice daily as outpatient
-Would be cautious not to over diurese given severe aortic stenosis.
-Monitor electrolytes, renal function, weights, I's and O's
-Acute on chronic COPD exacerbation -was provided IV Decadron in emergency department. Monitor and assess response
-Patient currently on 2 L of oxygen, wean as tolerated
-Found to have progressive aortic stenosis with last echo October 2023. Patient did complain of exertional shortness of breath, chest tightness and dizziness. Would repeat echocardiogram to rule out progression of aortic stenosis.
-Would be a good TAVR candidate
-Known hypertension on lisinopril and metoprolol as outpatient. Amlodipine discontinued as outpatient on 03/25/2024 due to hypotension. Continue to monitor and trend blood pressure here
-History of PACs and PVCs. Continue Toprol XL 25 mg daily. Check TSH. Keep potassium greater than 4, magnesium greater than 2
-Nonobstructive coronary artery disease on cath October 2022. EKG without ischemic changes. Troponin negative.
-Continue Eliquis for history of LV thrombus. Not seen on most recent echo from October 2023. Hemoglobin stable at 11.9
.
HPI 03/29/2024:
Patient is an 84-year-old male with past medical history significant for moderate to severe aortic stenosis, heart failure with preserved ejection fraction, hypertension, hyperlipidemia, PVCs/PACs, diabetes, COPD/emphysema with nocturnal oxygen,
SAÚL/CPAP, TIA and prostate cancer came to [facility] 03/29/2024 with progressively worsening shortness of breath. Patient reports breathing has gotten worse over the last 2 to 3 days and last night he was unable to lie flat due to shortness of breath and
cough. He also notes occasional exertional chest pressure and exertional dizziness. He denies chest pain at rest, shortness of breath at rest fevers or chills. In early March he has been working with physical therapy who noted he was
hypotensive and bradycardic as outpatient. His amlodipine was discontinued 03/25/2024. Plan was for outpatient monitor which patient has yet to schedule. Workup in emergency department includes EKG showing sinus rhythm with PVCs, runs of
ventricular bigeminy. Chest x-ray shows chronic emphysema/fibrosis. proBNP 7440. Troponin was negative. Patient was given dose of IV Lasix 40 mg and IV Decadron. Cardiology being consulted for concern over heart failure exacerbation. Patient
received dose of IV Lasix and IV Decadron in emergency department.
[2024-03-29 17:16] LABS: Erythrocyte Sed Rate 24 mm/hour (0-20)
[2024-03-29] MEDS: DECADRON 4 MG IV (20:22)
[2024-03-30 03:00] VITALS: BP 136/76
--- NOTE | 2024-03-30 03:11 | PTCARENOTE ---
Patient received in bed upon start of shift. Alert and oriented. Agitated with staff. [address] Denies SOB or discomfort. Educated to use call gallegos for assist. Oriented to unit and room. Call gallegos within reach.
[2024-03-30 06:00] VITALS: BMI 27.3
[2024-03-30 07:00] VITALS: BP 128/69
[2024-03-30] MEDS: SPIRIVA RESPIMAT 2.5 MCG 2 PUFF INH (07:52)
[2024-03-30] MEDS: SYMBICORT 80/4.5 MCG INHALER 2 PUFF INH (07:52)
[2024-03-30 07:58] LABS: Blood Urea Nitrogen 26 mg/dl (9-20); Calcium 9.2 mg/dl (8.4-10.2); Carbon Dioxide 31 mmol/L (22-30); Chloride 103 mmol/L (98-107); Estimated Creatinine Clearance 53 ml/min; Glucose 148 mg/dl (70-99); Potassium 4.3 mmol/L (3.5-5.1); Sodium 143 mmol/L (135-145); eGFR > 60.00
--- NOTE | 2024-03-30 09:20 | W.PN.HOSP.TC ---
Today's Communication/Plan
-
Cleared by cardiology for discharge today
Assessment / Plan
Assessment / Plan
HPI: 84-year-old male with a past medical history of COPD, SAÚL on CPAP, coronary artery disease, severe aortic stenosis, prostate cancer, hypertension, and hyperlipidemia presents with a 1 day history of shortness of breath. Patient also reports
orthopnea, abdominal bloating, and a 4 pound weight gain. Denies paroxysmal nocturnal dyspnea. He also has a cough, which occurs mostly at night. He denies chest pain, lightheadedness, dizziness. No fever, no vomiting. No black or bloody
stools. He usually wears oxygen 2 L at night.
Assessment/plan:
#Acute heart failure with reduced ejection fraction
Echo 03/29/24: EF 35 to 40%, global hypokinesis with akinesis of the inferior wall, mild MR, moderate to severe peak/mean 64/36 mmHg and SHELLEY 0.8 cm sq
Cardiology following, resolved status post Lasix 40 mg IV twice daily
Cleared by cardiology for discharge on Lasix 40 mg po twice a day, follow-up with cardiology in the office
#Severe aortic stenosis
Outpatient workup for TAVR
#Acute hypoxic respiratory insufficiency
Patient usually wears oxygen 2 L at night and as needed during the day
Resolved, he is currently on room air
#Hypernatremia
Resolved with diuresis
#Acute on chronic COPD exacerbation
#Pulmonary fibrosis
Seen by pulmonology, he has received a few doses of IV dexamethasone
He can be discharged without any steroids as his primary presentation is more consistent with CHF
Continue previous home bronchodilators, follow-up with pulmonology in the office as needed
#Obstructive sleep apnea
CPAP HS
#Normocytic anemia
Trend hemoglobin
#Prostate cancer
Outpatient follow-up
#History of left ventricular apical thrombus in the past
Continue Eliquis
#Anxiety/depression
Continue SSRI
#BPH
Continue Flomax
DVT prophylaxis�Eliquis
Full code
Updated at bedside 03/29, 03/29
Physical Exam
General: No acute distress
HEENT: Normocephalic, Atraumatic, EOMI, MMM
Respiratory: Clear to Auscultation bilaterally
Cardiac: Normal S1/S2, Regular Rate and Rhythm
GI: Soft, Nontender, Nondistended, Normal Bowel Sounds
Extremities: No Clubbing, Cyanosis
Trace lower extremity edema
Neuro: Nonfocal/Grossly Intact
Anticipated Discharge: Today
Subjective/Interval History
-
Date of Service: March 30, 2024
Patient reports that his shortness of breath has resolved, his breathing is back to normal. He is off of oxygen. No chest pain. No fever, no vomiting. He feels well, is eager for discharge today.
Objective Data
-
Labs:
Laboratory Results
03/30/24
06:15
Sodium 143
Potassium 4.3
Chloride 103
Carbon Dioxide 31 H
BUN 26 H
Creatinine 1.0
Glucose 148 H
Calcium 9.2
Vital Signs:
Vital Signs
Temp Pulse Resp BP Pulse Ox
97.6 F 56 16 128/69 92
03/30/24 07:00 03/30/24 07:58 03/30/24 07:58 03/30/24 07:00 03/30/24 07:58
I&O
03/29/24 03/30/24 03/31/24
06:59 06:59 06:59
Intake Total 240 / 240
Output Total 3660 / 3660
Balance -3420 / -3420
--- NOTE | 2024-03-30 09:46 | W.PN.CARDCBS ---
Addendum entered and electronically signed by Antwon Rivera MD 03/30/24 10:02:
Patient seen and examined
Agree with CATARINO Oh's note and assessment
Agree with CATARINO Oh's plan
Exam:
�
����Physical Exam
�
���������������������General:��no apparent distress, not acutely ill
�
���������������������������Neck:��supple. no meningeal signs. normal psoterior pharynx
������������������������
���������������������������Heart:��s1/s2 regular rate and rhythm, 2 out of 6 holosystolic ejection murmur with blunted S2
�
��������������������������Lungs: ��no acute respiratory distress. clear bilaterally
�
����������������������Abdomen:�normal bowel sounds. not tender. no CVAT
�
��������������������������Neuro:��alert and oriented. no focal neurological deficits
�
������������������������������Skin: ��no rash
�
�����������������������Psychiatric:�well kept. interactive and cooperative
�
�����������������������Extremities:��no edema. no calf tenderness. negative homans. good distal pulses
�
�
�
��
�
Impression:
Presents 03/29/2024 with progressively worsening shortness of breath, cough, orthopnea/PND
Acute Hypoxemic respiratory sufficiency
COPD exacerbation
Acute HFmrEF
COPD/emphysema
SAÚL on CPAP
Nocturnal hypoxemia on oxygen
Nonobstructive CAD by cath 10/17/22
Severe by echo 10/2023
Prostate cancer stage 3c, on Lupron, scheduled to start radiation therapy 06/14/23
HTN
DM 2
ETOH use disorder without signs of withdrawal
Hyperlipidemia
h/o TIA
h/o PACs and PVCs
Echo 09/29/22: EF 45-50%, previously identified LV apical thrombus no longer seen, mild MR, mod with peak/mean 42/25 mmHg and mild aortic regurgitation with SHELLEY 1.0 cm sq
Echo 11/03/2023: EF 40 to 45%. Mildly reduced LV systolic function. Apical and inferoapical akinesis. Mild concentric LVH. Stage II DD. Severe aortic stenosis peak/mean gradient 68/441 mmHg, SHELLEY 0.8 cm�. Moderate TR. PAP 49 mmHg, ascending
aorta dilation 4.1 cm
Echo 03/29/24: EF 35 to 40%, global hypokinesis with akinesis of the inferior wall, mild MR, moderate to severe peak/mean 64/36 mmHg and SHELLEY 0.8 cm sq
Plan:
-Weight is down 3 lbs, but patient reports symptomatic improvement and hypoxia has improved. Oxygen weaned 03/30/24 AM and ambulatory pulse ox check is pending
-Patient has diuresed with Lasix 40 mg IV BID this admission. Patient was taking Lasix 40 mg PO daily prior to admission. Recommend Lasix 40 mg PO BID upon d/c to home
-EF down a bit at 35-40% this admission.
-Outpatient dose of Toprol XL 25 mg daily has been continued
-Outpatient dose of lisinopril 10 mg daily scheduled to start 03/30/24
-Will not add spironolactone to avoid hypotension given severe aortic stenosis.
-Known hypertension, previous dose of amlodipine discontinued as outpatient on 03/25/2024 due to hypotension.
-Patient and receptive to TAVR evaluation. Will forward name to TAVR program coordinators for consideration.
-Nonobstructive coronary artery disease on cath October 2022. EKG without ischemic changes. Troponin negative.
-Continue Eliquis for history of LV thrombus. Not seen on most recent echo
Original Note:
Today's Communication / Plan
-
Oxygen weaned this AM and ambulatory pulse ox eval pending
Weight is only down about 3 lbs, but symptomatically improved and hypoxia has improved
TAVR team notified about patient for TAVR eval as an outpatient
Impression / Plan
-
PCP: Dr. Hanson
Cardiology: Dr. Lopez
Impression:
Presents 03/29/2024 with progressively worsening shortness of breath, cough, orthopnea/PND
Acute Hypoxemic respiratory sufficiency
COPD exacerbation
Acute HFmrEF
COPD/emphysema
SAÚL on CPAP
Nocturnal hypoxemia on oxygen
Nonobstructive CAD by cath 10/17/22
Severe by echo 10/2023
Prostate cancer stage 3c, on Lupron, scheduled to start radiation therapy 06/14/23
HTN
DM 2
ETOH use disorder without signs of withdrawal
Hyperlipidemia
h/o TIA
h/o PACs and PVCs
Echo 09/29/22: EF 45-50%, previously identified LV apical thrombus no longer seen, mild MR, mod with peak/mean 42/25 mmHg and mild aortic regurgitation with SHELLEY 1.0 cm sq
Echo 11/03/2023: EF 40 to 45%. Mildly reduced LV systolic function. Apical and inferoapical akinesis. Mild concentric LVH. Stage II DD. Severe aortic stenosis peak/mean gradient 68/441 mmHg, SHELLEY 0.8 cm�. Moderate TR. PAP 49 mmHg, ascending
aorta dilation 4.1 cm
Echo 03/29/24: EF 35 to 40%, global hypokinesis with akinesis of the inferior wall, mild MR, moderate to severe peak/mean 64/36 mmHg and SHELLEY 0.8 cm sq
Plan:
-Weight is down 3 lbs, but patient reports symptomatic improvement and hypoxia has improved. Oxygen weaned 03/30/24 AM and ambulatory pulse ox check is pending
-Patient has diuresed with Lasix 40 mg IV BID this admission. Patient was taking Lasix 40 mg PO daily prior to admission. Recommend Lasix 40 mg PO BID upon d/c to home
-EF down a bit at 35-40% this admission.
-Outpatient dose of Toprol XL 25 mg daily has been continued
-Outpatient dose of lisinopril 10 mg daily scheduled to start 03/30/24
-Will not add spironolactone to avoid hypotension given severe aortic stenosis.
-Known hypertension, previous dose of amlodipine discontinued as outpatient on 03/25/2024 due to hypotension.
-Patient and receptive to TAVR evaluation. Will forward name to TAVR program coordinators for consideration.
-Nonobstructive coronary artery disease on cath October 2022. EKG without ischemic changes. Troponin negative.
-Continue Eliquis for history of LV thrombus. Not seen on most recent echo
HPI 03/29/2024:
Patient is an 84-year-old male with past medical history significant for moderate to severe aortic stenosis, heart failure with preserved ejection fraction, hypertension, hyperlipidemia, PVCs/PACs, diabetes, COPD/emphysema with nocturnal oxygen,
SAÚL/CPAP, TIA and prostate cancer [facility] 03/29/2024 with progressively worsening shortness of breath. Patient reports breathing has gotten worse over the last 2 to 3 days and last night he was unable to lie flat due to shortness of breath and
cough. He also notes occasional exertional chest pressure and exertional dizziness. He denies chest pain at rest, shortness of breath at rest fevers or chills. In early March he has been working with physical therapy who noted he was
hypotensive and bradycardic as outpatient. His amlodipine was discontinued 03/25/2024. Plan was for outpatient monitor which patient has yet to schedule. Workup in emergency department includes EKG showing sinus rhythm with PVCs, runs of
ventricular bigeminy. Chest x-ray shows chronic emphysema/fibrosis. proBNP 7440. Troponin was negative. Patient was given dose of IV Lasix 40 mg and IV Decadron. Cardiology being consulted for concern over heart failure exacerbation. Patient
received dose of IV Lasix and IV Decadron in emergency department.
Progress Note - Job Analyst
Subjective
Date of Service: March 30, 2024
Patient feels well and wants to go home
Objective
Labs:
03/29/24 05:42
03/30/24 06:15
Labs
Hgb 11.9 g/dL (13.0-18.0) L 03/29/24 05:42
Hct 37.0 % (39.0-52.0) L 03/29/24 05:42
Plt Count 116 10^3/uL (130-400) L 03/29/24 05:42
Sodium 143 mmol/L (135-145) 03/30/24 06:15
Potassium 4.3 mmol/L (3.5-5.1) 03/30/24 06:15
BUN 26 mg/dl (9-20) H 03/30/24 06:15
Creatinine 1.0 mg/dL (0.7-1.3) 03/30/24 06:15
Glucose 148 mg/dl (70-99) H 03/30/24 06:15
Troponins
03/29/24
05:42
Troponin I 0.022
Vital Signs and I&O:
Vital Signs
Temp Pulse Resp BP Pulse Ox
97.6 F 56 16 128/69 92
03/30/24 07:00 03/30/24 07:58 03/30/24 07:58 03/30/24 07:00 03/30/24 07:58
Vital Signs
Temp Pulse Resp BP Pulse Ox
97.6 F 56 16 128/69 92
03/30/24 07:00 03/30/24 07:58 03/30/24 07:58 03/30/24 07:00 03/30/24 07:58
Intake & Output
03/28/24 03/29/24 03/30/24 03/31/24
06:59 06:59 06:59 06:59
Intake Total 240 / 240
Output Total 3660 / 3660
Balance -3420 / -3420
Physical Exam
Physical Exam
GEN: AAOx3
HEENT: mmm
LUNGS: No audible wheeze
CV: SR on tele
ABD: ND
EXT: No edema
NEURO: Gross non-focal
SKIN: No rash
[2024-03-30] MEDS: ELIQUIS 5 MG PO (09:48)
[2024-03-30] MEDS: LEXAPRO 10 MG PO (09:48)
[2024-03-30] MEDS: LIPITOR 40 MG PO (09:48)
[2024-03-30] MEDS: TOPROL XL 25 MG PO (09:48)
[2024-03-30] MEDS: DECADRON 4 MG IV (09:49)
[2024-03-30] MEDS: FLOMAX 0.4 MG PO (09:49)
[2024-03-30] MEDS: LASIX 40 MG IV (09:49)
[2024-03-30] MEDS: ZESTRIL 10 MG PO (09:49)
[2024-03-30 11:31] LABS: Glycohemoglobin (HgbA1c) 5.8 % (4.0-5.6)
--- NOTE | 2024-03-30 11:51 | W.DCSUMMARY ---
Discharge Summary
Discharge Data
Date of Admission: 03/29/24
Date of Discharge: 03/30/24
-
Pending Results: No
Hospital Course
Discharge diagnosis:
Acute heart failure with reduced ejection fraction
Severe aortic stenosis
Acute hypoxic respiratory insufficiency
Hypernatremia
Acute on chronic mild COPD exacerbation
Pulmonary fibrosis
Obstructive sleep apnea
Normocytic anemia
Prostate cancer
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
Anxiety/depression
Consults: Cardiology, pulmonology
Chest x-ray: Chronic changes of emphysema and fibrosis.
Echocardiogram:
Normal left ventricular chamber size.
Mildly to moderately reduced left ventricular systolic function.
Left ventricular ejection fraction is 35-40% by Hernandez's method.
Global hypokinesis with akinetic inferior wall.
Mild mitral regurgitation.
Moderate to severe aortic stenosis.
Peak/mean gradients are 64-36mmHg.
The valve area by continuity equation is 0.8 cm sq, using a LVOT of 2.1cm.
Tricuspid valve opens normally.
Estimated pulmonary artery pressure of 65-70 mmHg.
Assuming a right atrial pressure of 15 mmHg.
Mild pulmonic regurgitation.
Normal pericardium without effusion.
The IVC is dilated and does not collapse.
Hospital course:
84-year-old male with a past medical history of COPD, SAÚL on CPAP, coronary artery disease, severe aortic stenosis, prostate cancer, hypertension, and hyperlipidemia presented with shortness of breath, and was found to have acute hypoxic respiratory
insufficiency secondary to acute heart failure and mild COPD exacerbation.
Patient was seen in conjunction with cardiology. He has severe aortic stenosis, contributing to his heart failure. He was diuresed with Lasix 40 mg IV twice daily. By the following day, his shortness of breath resolved. His breathing returned to
baseline. He initially required 2 L of oxygen, was weaned to room air. He is cleared by cardiology for discharge on Lasix 40 mg p.o. twice daily, this dose is increased from his previous dose of Lasix 40 mg p.o. daily. He needs to follow-up with
cardiology in the office for outpatient TAVR workup.
Patient also had mild COPD exacerbation. He was seen in conjunction with pulmonology. He has a history of pulmonary fibrosis as well. He received a few doses of IV steroids. Since his presentation is more consistent with CHF exacerbation, he
does not need any more steroids upon discharge. He can resume his previous bronchodilators. He can follow-up with pulmonology in the office as needed.
Patient is medically stable for discharge. He needs to follow-up with his primary care doctor in 1 week, cardiology in the office in 2-3 weeks, and pulmonology as needed.
Disposition: Home self-care
Discharge planning: Required 39 minutes
Discharge Plan
-
Patient Disposition: Home (Routine Discharge)
Discharge Diagnosis/Procedures: Congestive heart failure, chronic obstructive pulmonary disease, severe aortic stenosis
Condition: Fair
Diet: 2 Gram Sodium
Blood Work: BMP with your PCP in 1 week
Other Services: VN
Specialty Instructions: Weigh Daily- Call MD for wt gain/loss 3 lbs overnight/5 lbs in 1 week
Activity Restrictions/Additional Instructions:
Please follow-up with cardiology and pulmonology in 2-3 weeks, and your primary care doctor in 1 week.
Referrals:
Mariano Henderson MD [Active] - in two to four weeks (With full PFTs and 6-minute walk test)
Natividad Villafana CRNP [Specified Professional Personl] - (The TAVR program coordinators will reach out to you regarding TAVR work-up.)
Camron Lopez MD [Active] - in two to three weeks (Dr. Lopez's office will call you with an appt to be seen.)
Glenn Hanson MD [Family Provider] - in one week
Additional Discharge Medication Instructions: -Increase Lasix (furosemide) to 40 mg twice a day (about 8 AM and about 4 PM)
Prescriptions:
Continued
tamsulosin 0.4 mg Capsule
0.4 mg PO BID
metoprolol succinate 25 mg Tablet Extended Release 24 Hr
25 mg PO DAILY
Eliquis 5 mg Tablet
5 mg PO BID
atorvastatin [Lipitor] 40 mg Tablet
40 mg PO DAILY
albuterol sulfate 90 mcg/actuation HFA aerosol inhaler
2 puff inhalation R Q4HPRN PRN (Reason: shortness of breath or wheezing)
lisinopril 10 mg tablet
10 mg PO DAILY
escitalopram oxalate 10 mg tablet
10 mg PO DAILY
Trelegy Ellipta 100-62.5-25 mcg blister with device
1 inh INHALATION R DAILY
Orgovyx 120 mg tablet
120 mg PO DAILY
Changed
furosemide [Lasix] 40 mg tablet
40 mg PO BID Qty: 60 0RF
No Action
potassium chloride 20 mEq tablet extended release
20 meq PO DAILY
Discharge Orders:
Discharge Patient (As Directed); Ordered 03/30/24
Ordered By: Apolinar Cee
Discharge Date and Time
Discharge Date/Time: 03/30/24 13:41
Print Language: TURKMEN
--- NOTE | 2024-03-30 12:22 | CM ---
Addendum entered by Valentina Cloud 03/30/24 13:09:
IMM given
Original Note:
underwriting operations manager met with patient and spoke with patient and spouse at bedside, patient has been cleared for discharge to home today, no needs. Patient lives with spouse in a one story home, no dme, patient is independent with adl's and ambulation,
patient does go down in the basement to studio and workshop.
PCP: Dr. Hanson
Pharmacy: [facility].
Plan; Home today no needs.
== END 2024-03-30 13:41 | disposition home or self-care (01) | DRG 291 ==
LOC: 4 WEST ACU 10:35
PROVIDERS: Student in an Organized Health Care Education/Training Program; ADMITTING PHYSICIAN Family Medicine; CONSULT PHYSICIAN Internal Medicine Critical Care Medicine; EMERGENCY PHYSICIAN Emergency Medicine; FAMILY PHYSICIAN Family Medicine; OTHER PHYSICIAN Internal Medicine Cardiovascular Disease
DX: I11.0 Hypertensive heart disease with heart failure (principal); I50.43 Acute on chronic combined systolic (congestive) and diastolic (congestive) heart failure; J44.1 Chronic obstructive pulmonary disease with (acute) exacerbation; E87.0 Hyperosmolality and hypernatremia; Z87.891 Personal history of nicotine dependence; E78.00 Pure hypercholesterolemia, unspecified; R06.89 Other abnormalities of breathing; I35.0 Nonrheumatic aortic (valve) stenosis; J84.10 Pulmonary fibrosis, unspecified; G47.33 Obstructive sleep apnea (adult) (pediatric); D64.9 Anemia, unspecified; C61 Malignant neoplasm of prostate; F41.9 Anxiety disorder, unspecified; F32.A Depression, unspecified
CPT/HCPCS: 71046; 80048; 80053; 83036; 83735; 83880; 84484; 85025; 85652; 93005; 93306; 94640; 94760; 96374; 96375; 97162; 99285

== ENCOUNTER 2024-04-04 13:06 | Outpatient (RCR) | payer OTHER, SELFPAY | END 2024-04-04 23:59 | disposition home or self-care (01) | LOC: RPT 13:06 | PROVIDERS: ATTENDING PHYSICIAN Radiology Radiation Oncology; FAMILY PHYSICIAN Family Medicine | DX: M62.89 Other specified disorders of muscle (principal); N39.41 Urge incontinence; R15.9 Full incontinence of feces; Z73.6 Limitation of activities due to disability; C61 Malignant neoplasm of prostate | CPT/HCPCS: 97112; 97530 ==

== ENCOUNTER → 2024-04-12 09:05 | Outpatient (REF) | payer OTHER, SELFPAY | LOC: RAD 09:05 | PROVIDERS: ATTENDING PHYSICIAN Nurse Practitioner Acute Care; FAMILY PHYSICIAN Family Medicine | DX: I35.0 Nonrheumatic aortic (valve) stenosis (principal) | CPT/HCPCS: 74174; 75572; Q9967 ==

== ENCOUNTER 2024-05-09 07:34 | Inpatient (IN) | payer OTHER, SELFPAY ==
[2024-05-01 08:35] VITALS: BMI 27.7
[2024-05-01 09:08] LABS: % Basophils 0.7 % (0-2); % Eosinophils 3.7 % (0-6); % Immature Granulocytes 0.5 % (0-0.5); % Lymphocytes 19.1 % (20.5-51.1); % Monocytes 8.2 % (1.7-9.3); % Neutrophils 67.8 % (42.2-75.2); Absolute Eosinophils 0.2 10^3/uL (0-0.7); Absolute Lymphocytes 0.8 10^3/uL (1.2-3.4); Absolute Monocytes 0.3 10^3/uL (0.1-0.6); Absolute Neutrophils 2.7 10^3/uL (1.4-6.5); Hematocrit 37.5 % (39.0-52.0); Hemoglobin 12.1 g/dL (13.0-18.0); Mean Corp Hgb Conc. 32.3 g/dL (33.0-37.0); Mean Corpuscular Hgb 29.8 pg (27.0-31.0); Mean Corpuscular Volume 92.4 fL (80.0-94.0); Mean Platelet Volume 9.7 fL (7.4-10.4); Nucleated Red Blood Cells % 0 % (-); Platelet Count 128 10^3/uL (130-400); Red Blood Cell Count 4.06 10^6/uL (4.70-6.10); Red Cell Dist. Width 14.6 % (11.5-14.5)
[2024-05-01 09:12] LABS: INR 1.15; PT 15.2 Sec (11.4-14.6)
[2024-05-01 09:18] LABS: APTT 31.9 Sec (23.4-35.0)
[2024-05-01 09:23] LABS: NT-proBNP 3830 pg/ml
[2024-05-01 09:24] LABS: ALT (SGPT) 21 U/L (0-50); AST (SGOT) 22 U/L (17-59); Albumin 4.1 g/dl (3.5-5.0); Alkaline Phosphatase 73 U/L (38-126); Blood Urea Nitrogen 29 mg/dl (9-20); Calcium 9.4 mg/dl (8.4-10.2); Carbon Dioxide 28 mmol/L (22-30); Chloride 109 mmol/L (98-107); Direct Bilirubin 0.1 mg/dl (0.0-0.4); Estimated Creatinine Clearance 44 ml/min; Glucose 109 mg/dl (70-99); Potassium 4.5 mmol/L (3.5-5.1); Sodium 148 mmol/L (135-145); Total Bilirubin 0.5 mg/dl (0.2-1.3); Total Protein 6.7 g/dl (6.3-8.2); eGFR 59.63
[2024-05-01 09:50] LABS: Urine Albumin Trace (Neg - Trace); Urine Bilirubin Negative (Negative); Urine Character Clear (Clear); Urine Color Yellow; Urine Glucose Negative (Negative); Urine Ketone Negative (Negative); Urine Leukocyte Negative (Negative); Urine Nitrite Negative (Negative); Urine Occult Blood Negative (Negative); Urine Specific Gravity 1.015 (<1.030); Urine Urobilinogen Negative (Neg - 1+)
--- NOTE | 2024-05-01 10:34 | CM ---
CM following for DC planning needs.
Met w/ patient and spouse during PATs for planned TAVR, 05/09.
Pt. resides w/ spouse in a private, 1 story home w/ 1 MACHO. Functionally, patient is indep. w/ ADLs, mobility without the use of any assisted device, + drives. Pt. has CPAP at home thru [employer] [facility], which he uses regularly.
We reviewed pre and post op routines.
Soap, shower instructions and TAVR booklet provided.
Discussed post-op MD appointments, Cardiac Rehab and visit from CT Transitional Care RN.
Plan for TAVR, 05/09.
Anticipated DC plan is for home w/ CT Transitional Care RN.
[2024-05-09] VITALS (18 sets, daily range): BP systolic 113–149; BP diastolic 50–86; BMI 27.7
[2024-05-09 08:02] LABS: Glucose - Point of Care 98 mg/dl (70-99)
--- NOTE | 2024-05-09 09:59 | W.CVOR.SURPR ---
CVOR Surgeon Immed Pre Op
-
I have examined this patient prior to performance of the scheduled procedure.
The patient's condition is unchanged from the time of the dictated/written History and
Physical and the patient is able to undergo the scheduled procedure.
TF TAVR
--- NOTE | 2024-05-09 10:15 | ITS.CL.TAVR ---
[facility] - TAVR Report
TAVR PRocedure
Procedure Report:
TRANSCATHETER AORTIC VALVE REPLACEMENT
Date of Procedure: May 09, 2024
Referring: Camron Lopez MD
Operators: Vítcor Chappell and Thierno Celeste
PROCEDURE PERFORMED:
1. Successful placement of 29 mm Camarena Dedra S3 aortic valve via right common femoral approach.
PREPROCEDURE NYHA CLASS: II
DESCRIPTION OF PROCEDURE: The patient was referred for assessment of severe symptomatic aortic stenosis and following a comprehensive evaluation it was felt that transcatheter aortic valve replacement (TAVR) would be the most appropriate treatment.
Informed consent was obtained prior to the procedure. A 'time-out' was called and the procedural plan was verbally confirmed by anesthesia, surgery, perfusion, and lab engineer staff.
Arterial and venous access site were obtained in the left common femoral artery and vein using ultrasound guidance and micropuncture technique. 6 Fr. sheaths were inserted.
A 5 Fr. transvenous pacing wire was advanced to the right ventricle where excellent pacing thresholds were obtained.
A 5 Fr. pigtail catheter was then advanced to the proximal ascending aorta / right aortic cusp where angiography was performed in multiple angles to define the co-planar angle that was most appropriate valve deployment (TULIO 5/SENIOR APPLICATION SECURITY CONSULTANT 0).
Ultrasound guidance was then used to obtain arterial access in the right common femoral artery and a 4 Fr. micropuncture sheath was inserted. Angiography was performed and the arteriotomy site appeared appropriate for preclosure with two Perclose
devices. An 8 Fr sheath was then inserted back into the common femoral artery over a J-tipped guidewire. An AL1 catheter was positioned in the proximal descending aorta. An Extra Stiff 0.035' J-tip wire was inserted to provide extra-support to
facilitate the Camarena eSheath delivery. The right common femoral arteriotomy was dilated with a 18 Fr. dilator followed by placement of the 16 Fr. Camarena eSheath in the descending thoracic aorta.
An AL1 catheter was advanced through the Camarena eSheath over a 0.035' J-tip guide wire. The AL1 catheter was positioned just above the aortic valve. A 0.035' Straight tip wire probed the aortic valve and crossed the stenotic leaflets. The AL1
was then advanced to the mid left ventricle. An Amplatz Extra-stiff wire with a generous curved tip was then positioned in the left ventricular apex. A 29 mm Camarena Dedra S3 valve was brought to the table and the orientation of the valve on the
balloon delivery system was confirmed by all operators. The Dedra S3 valve was advanced through the eSheath and into the proximal descending thoracic aorta. The Dedra S3 valve was centered on the delivery balloon and the entire system was
retroflexed as it crossed the aortic arch. The Dedra S3 delivery system was then advanced across the stenotic valve and the 29 mm Dedra S3 valve was deployed during rapid pacing. The valve deployment was uneventful. Transthoracic
echocardiographic images post valve deployment revealed minimal aortic insufficiency with excellent position of the aortic prosthesis.
The Camarena balloon and delivery system were then removed. The Camarena sheath was removed and the Perclose knots were advanced to the arteriotomy site resulting in excellent hemostasis.
Fluoro Time: 8.4 min, Dose: 289.07 mGy, DAP : 31.47 Gy.cm2
CONCLUSIONS:
1. Severe symptomatic aortic stenosis. Successful deployment of a 29 mm Dedra S3 valve with minimal aortic insufficiency post procedure
2. Successful arteriotomy closure with 2 Perclose devices.
3. Acute on chronic systolic and diastolic heart failure with elevated LVEDP at 29 mmHg
Copy to: Camron Lopez MD
Colette Chappell MD, [facility], [facility]
--- NOTE | 2024-05-09 11:07 | CM ---
CM following for DC planning needs.
Pt. in OR today for planned TAVR.
Reviewed initial assessment. Pt. resides w/ spouse in a private, 1 story home w/ 1 MACHO. Functionally, patient is quite indep. w/ ADLs, mobility without the use of any assisted device.
Anticipated DC plan is for home with CT Transitional Care RN.
CM to follow.
[2024-05-09 12:07] LABS: ACT-LR - POC 358 Seconds (116-155)
[2024-05-09 12:17] LABS: ACT-LR - POC 364 Seconds (116-155)
--- NOTE | 2024-05-09 12:29 | W.PN.CT.SURG ---
CT Surgery Operative Note
-
OPERATIVE REPORT
Preoperative Diagnosis: Severe aortic valve stenosis, symptomatic
Postoperative Diagnosis: Same
Procedure(s) Performed: Right trans femoral TAVR with a 29 mm Camarena TAVR valve, nominal
Date of Procedure: 05/09/2024
Comorbidities:
1. Severe aortic stenosis, symptomatic
2. Mild to moderately depressed left ventricular ejection fraction
3. Acute on chronic congestive heart failure, systolic diastolic, LVEDP of 29 mmHg pre-TAVR
Cardiac Surgeon: Thierno Celeste MD, MS
Sheet Folder: Colette Chappell MD
Anesthesia: Conscious Sedation and Local Analgesia
EBL: 100cc
Products: none
Implant: 29 mm Camarena TAVR valve, SN: [id number]
Indication(s) for Procedures: 84-year-old male with symptomatic severe aortic stenosis, low-flow low gradient with depressed left ventricular ejection fraction. Multidisciplinary team discussion between multiple providers with consensus that he met
criteria for transcatheter intervention.CT-TAVR protocol revealed acceptable anatomy for TAVR access and implantation.
Start time: 1133hrs
Deployment time: 1206hrs
End time: 1219hrs
Radiation Dose (mGy): 289.07
DAP (cm2.Gy): 31.4767
Fluoroscopy time (minutes): 8.4
Contrast volume (ml): 80
TAVR gradient (mmHg): 4mmHg
Protamine Dose: 40mg
Final Valve Positionin/20
Findings: Preoperative LVEF was 45% and was 45% following TAVR without inotropic support. Function was overall normal without regional wall motion abnormalities or dyskinesia. The aortic valve was well seated without detectable PVL and mean gradient
across the new valve was 4mmHg. following deployment of valve, he regained his [place] rhythm and did not require any pacing. There was successful placement of 29 mm TAVR valve without acute complications.
Access:
1. Device -right common femoral artery, perclose x 2
2. Pigtail -left common femoral artery [+ 6Fr angioseal]
3. Transvenous Pacer -left common femoral vein
Description of Procedure: The patient was taken to the mobile lab technician. Their identity and procedure to be performed were verified and they were positioned supine on the mobile lab technician table. Induction via conscious sedation. The patient was then prepped and
draped from chin to thigh in a sterile fashion. A preoperative time-out was performed with all members of the team present. Arterial and venous access was performed using fluoroscopy and ultrasound guidance with micropuncture and Seldinger
technique. Two perclose devices were used on the device side followed by access to the aorta with a stiff wire to faciltate E-sheath placement. Heparin was given. A stiff straight wire and AL-1 catheter was used to cross the aortic valve. An LVEDP
was measured here and found to be 29 mmHg. The stiff wire was exchanged for an extra stiff coiled tip wire. The valve was prepped and mounted on to the device carrier. An ACT of >250 was achieved. We verified x 3 that the valve was mounted in the
correct orientation with the skirt of the valve directed toward the tip of the device carrier. We advanced the device into the descending thoracic aorta where the valve was them mounted onto the balloon under fluoroscopy. The device was flexed and
advanced over the arch into the root and positioned across the aortic valve. Contrast fluoroscopy was used to visualize the prosthesis across the valve and to guide positioning. A pigtail catheter in the RCC as used as a guide. We aimed to have the
bottom of the device marker at the annular hinge point. The device sheath was pulled back. We performed a quick pre-deployment time out. The pacer was turned on and had capture. Blood pressure fell accordingly, angiography was done to verify the
intended final placement and the valve was deployed with 5 seconds of rapid pacing to nominal volume. The balloon was deflated and the pacer was turned off. We had recovery of vitals. The device carrier was unflexed and positioned back in the
descending thoracic aorta. A transthoracic echocardiogram was performed. The device was removed from the E-Sheath maintaining wire access followed by removal of the E-sheath as we cinched down the perclose devices. There was acceptable hemostasis.
The pigtail was withdrawn into the descending/abdominal and completion aortogram with runoff run-off angiography was performed. There was no stenosis or dissection of bilateral iliofemoral systems. There was acceptable hemostasis of bilateral groins
and manual pressure was held following wire removal. Low dose protamine was administered after checking another ACT.
All instrument, sponge, and needle counts were confirmed to be correct x 2 at the end of the operation. The patient was transferred to the cardiac intensive care unit in stable condition.
I, Dr. Thierno Celeste, was present, scrubbed for, and performed all critical elements of this procedure.
Thierno Celeste MD
Cardiothoracic Surgeon
[facility]
This operative dictation was created using the [employer] [place] dictation system. Please excuse any grammatical, typographical, or 'sound alike' errors
[2024-05-09 13:02] LABS: Glucose - Point of Care 107 mg/dl (70-99)
--- NOTE | 2024-05-09 13:15 | W.PN.UPDATE ---
Update Note
Progress Note Update
Reviewed Mr. Naranjo with the heart team in the preTAVR SDM meeting and confirmed a 29 mm S3 via (R) TF access. Patient will resume Eliquis post TAVR. LVEDP 29mmHg. #29 mm S3 (serial# [id number]) successfully deployed via right TF access. Post implant
MG 4mmHg.
[2024-05-09] MEDS: LASIX 40 MG IV (13:30)
[2024-05-09] MEDS: ANCEF 10 IV ×2 (14:32)
--- NOTE | 2024-05-09 15:05 | PTCARENOTE ---
Patient received from recovery at 1430; Right and left groin site assessed with tin recovery worker, both sites with gauze and tegaderm C/D/I, soft to palpation, no ecchymosis present, no hematoma noted; Bilateral pedal pulse +1 to palpation; Previous right
radial arterial line site assessed, gauze and tegaderm present C/D/I, some puffiness noted but per tin recovery worker this has been present; Bilateral radial pulses +1 to palpation; Patient on 2L NC with SaO2 95%; Patient alert to self, place, and time;
Follows commands; Call gallegos within reach; Family at bedside; Assessment ongoing
[2024-05-09] MEDS: ANCEF 5 IV (18:20)
[2024-05-09] MEDS: ZESTRIL 10 MG PO (18:20)
[2024-05-09] MEDS: LEXAPRO 10 MG PO (21:04)
[2024-05-09] MEDS: FLOMAX 0.4 MG PO (21:04)
[2024-05-09 21:05] LABS: Blood Urea Nitrogen 27 mg/dl (9-20); Calcium 8.8 mg/dl (8.4-10.2); Carbon Dioxide 30 mmol/L (22-30); Chloride 103 mmol/L (98-107); Estimated Creatinine Clearance 47 ml/min; Glucose 165 mg/dl (70-99); Magnesium 2.1 mg/dl (1.6-2.3); Sodium 141 mmol/L (135-145); eGFR > 60.00
[2024-05-09] MEDS: TYLENOL 650 MG PO (21:11)
--- NOTE | 2024-05-09 23:10 | PTCARENOTE ---
Received patient at change of shift. Patient awake, alert, and oriented sitting in bed. Bilateral groin sites clean, dry, and intact. No ecchymosis, hematoma or swelling. Right radial site clean, dry, and intact-- little puffiness, but no hematoma
or ecchymosis. C/o of pain around left groin site (07/29)-- gave Tylenol-- see AUG. BP 126/51, SB/NSR 50s-60s with ventricular bigeminy, 96% on room air. Discussed plan of care. Patient verbalized calling RN when getting out of bed. Call gallegos within
reach.
[2024-05-10] VITALS (8 sets, daily range): BP systolic 97–119; BP diastolic 48–60; PULSE 62; O2SAT 94; BMI 27.8
[2024-05-10 04:34] LABS: Hemoglobin 10.9 g/dL (13.0-18.0); Mean Corp Hgb Conc. 32.1 g/dL (33.0-37.0); Mean Corpuscular Volume 93.7 fL (80.0-94.0); Red Blood Cell Count 3.63 10^6/uL (4.70-6.10); Red Cell Dist. Width 14.8 % (11.5-14.5); White Blood Cell Count 4.3 10^3/uL (4.8-10.8)
[2024-05-10 05:10] LABS: Blood Urea Nitrogen 25 mg/dl (9-20); Calcium 8.7 mg/dl (8.4-10.2); Carbon Dioxide 26 mmol/L (22-30); Chloride 106 mmol/L (98-107); Estimated Creatinine Clearance 51 ml/min; Glucose 102 mg/dl (70-99); Sodium 143 mmol/L (135-145); eGFR > 60.00
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
[2024-05-10 07:04] LABS: Platelet Count 95 10^3/uL (130-400)
[2024-05-10] MEDS: FLOMAX 0.4 MG PO (07:42)
[2024-05-10] MEDS: LEXAPRO 10 MG PO (07:42)
[2024-05-10] MEDS: THERAGRAN 1 TABLET PO (07:42)
[2024-05-10] MEDS: ZESTRIL 10 MG PO (07:42)
[2024-05-10] MEDS: LIPITOR 40 MG PO (07:42)
[2024-05-10] MEDS: LASIX 40 MG PO (07:42)
[2024-05-10] MEDS: KCL 20 MEQ PO (07:42)
[2024-05-10] MEDS: NON-FORMULARY ITEM 120 MG PO (07:42)
--- NOTE | 2024-05-10 08:08 | W.PN.ANS.POP ---
Anesthesia Post Operative
- Anesthesia Post Op Note
Vital Signs Stable-See Nursing Note: Yes
Airway Patent: Yes
Adequate Pain Control: Yes
Change in Mental Status: No
Current Postoperative Nausea & Vomiting: No
Anesthesia Complications: No
General Anesthetic Recall: No
Unplanned Admission: No
Post Op Hydration Adequate: Yes
--- NOTE | 2024-05-10 09:15 | W.DCSUMMARY ---
Discharge Summary
Discharge Data
Date of Admission: 05/09/24
Date of Discharge: 05/10/24
Total time spent discharging patient (in min): 35
-
Pending Results: No
Hospital Course
Primary care physician:
Glenn Hanson
Outpatient sprinkler repair technician:
Camron Lopez
Inpatient consultants:
[facility]
Procedures:
1. Right transfemoral TAVR with a #29 mm Camarena TAVR valve
Primary Diagnosis:
1. Severe aortic stenosis
Secondary Diagnoses:
1. Mild to moderately depressed LV ejection fraction
2. Acute on chronic congestive failure
3. Transient left bundle branch block postoperative
HPI: 84-year-old male seen in the office by Dr. Celeste presents electively on 05/09 for a transfemoral transcatheter aortic valve replacement.
Hospital course: Patient was electively admitted on 05/09 for a transcatheter aortic valve replacement with Dr. Celeste. There were no intra-op events and patient went to agriculture laborer recovery postop EKG showed a left bundle branch block so beta-blockers
were put on hold. B/l groins remain stable. He was sent to IVU for the remainder of their recovery. On 05/10, POD #1, B/L groins remained stable. Morning EKG showed resolution of left bundle branch block so his home dose of Lopressor was resumed.
Repeat TTE showed a Peak gradient 26mmHg/Mean gradient 14mmHg. He was deemed stable for discharge.
Home medication changes:
None
Discharge Plan
-
Patient Disposition: Home (Routine Discharge)
Discharge Diagnosis/Procedures: TF TAVR
Condition: Good
Diet: Low Fat, Low Cholesterol and 2 Gram Sodium
Activity: As tolerated
Driving Restrictions: No driving for 24 hours
Bathing Restrictions: OK to Shower
Others Tests: Your 30- day follow up echocardiogram is scheduled for: 06/04/2024 @ 10:20 at [facility]
Other Services: Cardiac Rehab
Wound Care: No lotions, powders, or creams to puncture sites
Specialty Instructions: Weigh Daily- Call MD for wt gain/loss 3 lbs overnight/5 lbs in 1 week
Instructions: Aortic Valve Replacement, Transcatheter (DC)
Referrals:
CT Transitional Care Nurse [Outside] (The Cardiothoracic Transitional Care Nurse will call you to set up a visit in 1-2 days.)
Toshia Nguyen PA-C [Specified Professional Personl] - 06/07/24 10:00 am
Glenn Hanson MD [Family Provider] -
Prescriptions:
New
acetaminophen 325 mg Tablet
650 mg PO Q6 PRN (Reason: LEDESMA, mild pain, or fever >101F) Qty: 0 0RF
Continued
tamsulosin 0.4 mg Capsule
0.4 mg PO BID
metoprolol succinate 25 mg Tablet Extended Release 24 Hr
25 mg PO DAILY
Eliquis 5 mg Tablet
5 mg PO BID
atorvastatin [Lipitor] 40 mg Tablet
40 mg PO DAILY
albuterol sulfate 90 mcg/actuation HFA aerosol inhaler
2 puff inhalation R Q4HPRN PRN (Reason: shortness of breath or wheezing)
lisinopril 10 mg tablet
10 mg PO DAILY
escitalopram oxalate 10 mg tablet
10 mg PO DAILY
Trelegy Ellipta 100-62.5-25 mcg blister with device
1 inh INHALATION R DAILY
Orgovyx 120 mg tablet
120 mg PO DAILY
furosemide [Lasix] 40 mg tablet
40 mg PO BID Qty: 60 0RF
potassium chloride 20 mEq tablet extended release
20 meq PO DAILY
aspirin 81 mg Capsule
81 mg PO DAILY
multivitamin Tablet
1 tab PO DAILY Qty: 0 0RF
Held
sildenafil [Viagra] 100 mg Tablet
100 mg PO DAILY PRN (Reason: sexual activity)
Hold Instructions: Resume on 05/24/24.
Discharge Orders:
Discharge Patient (As Directed); Ordered 05/10/24
Ordered By: Magaly Mata
Care Plan Goals
Care Plan Goals:
Problem: Readiness for enhanced knowledge related to diagnosis and treatment plan
Goal: Understand your diagnosis and treatment plan needs, including medications if applicable.
Instructions: Know your diagnosis, underlying causes and treatment plan options, including medications if applicable. Consult with your health care team to learn about your diagnosis and treatment plan, including medications if applicable.
Discharge Date and Time
Print Language: TAJIK
[2024-05-10] MEDS: NON-FORMULARY ITEM 1 INH INH (09:28)
[2024-05-10] MEDS: TOPROL XL 25 MG PO (09:28)
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
--- NOTE | 2024-05-10 11:29 | CM ---
Chart reviewed. Patient is independent of ADLS, lives with his in a 1 [address], 1 MACHO, 0 DME. Plan is for the patient to return home with CT Transitional RN. CM to follow
== END 2024-05-10 15:35 | disposition home or self-care (01) | DRG 266 ==
LOC: IVU 07:34
PROVIDERS: Physician Assistant Medical; Physician Assistant Surgical; ADMITTING PHYSICIAN Thoracic Surgery (Cardiothoracic Vascular Surgery); CONSULT PHYSICIAN Internal Medicine Interventional Cardiology; FAMILY PHYSICIAN Family Medicine
PROC: 02RF38Z Replacement of Aortic Valve with Zooplastic Tissue, Percutaneous Approach (ICD-10-PCS; 2024-05-09)
DX: I35.0 Nonrheumatic aortic (valve) stenosis (principal); I50.43 Acute on chronic combined systolic (congestive) and diastolic (congestive) heart failure; I44.7 Left bundle-branch block, unspecified; I11.0 Hypertensive heart disease with heart failure; E78.5 Hyperlipidemia, unspecified; J44.9 Chronic obstructive pulmonary disease, unspecified; E11.9 Type 2 diabetes mellitus without complications; F41.9 Anxiety disorder, unspecified; F32.A Depression, unspecified; G47.33 Obstructive sleep apnea (adult) (pediatric); K21.9 Gastro-esophageal reflux disease without esophagitis; D64.9 Anemia, unspecified; Z79.01 Long term (current) use of anticoagulants; Z79.899 Other long term (current) drug therapy; Z85.46 Personal history of malignant neoplasm of prostate; Z86.73 Personal history of transient ischemic attack (TIA), and cerebral infarction without residual deficits; Z99.81 Dependence on supplemental oxygen
CPT/HCPCS: 93308; 33361; 36415; 71045; 71046; 80048; 80053; 81003; 82248; 82962; 83036; 83735; 83880; 85025; 85027; 85347; 85610; 85730; 86850; 86900; 86901; 86920; 87070; 93005; 93306; 93321; 93325; C1760; C1769; C1894; Q9967

== ENCOUNTER 2024-07-17 09:32 | Outpatient (RCR) | payer OTHER, SELFPAY | END 2024-07-17 23:59 | disposition home or self-care (01) | LOC: CRHB 09:32 | PROVIDERS: ATTENDING PHYSICIAN Internal Medicine Cardiovascular Disease; FAMILY PHYSICIAN Family Medicine | DX: Z95.2 Presence of prosthetic heart valve (principal) | CPT/HCPCS: G0422; G0423 ==

== ENCOUNTER → 2024-09-13 09:07 | Outpatient (REF) | payer OTHER, SELFPAY ==
--- NOTE | 2024-09-13 10:37 | CARDSERVLU ---
Echocardiogram with Lumason completed after protocol screening completed. Allergies verified.
Patent IV site: __left AC___
IV site flushed with 0.9% NaCl pre and post administration.
Diluted bolus method utilized to enhance visualization of ventricular rosario.
Total volume given: _6.0__ mL
Patient tolerated all procedures well without complications.
#22 radha placed Left AC. Lumason given. INT d/c'd. pressure held. No bleeding noted.
== END ==
LOC: RCS 09:07
PROVIDERS: ATTENDING PHYSICIAN Internal Medicine Cardiovascular Disease; FAMILY PHYSICIAN Family Medicine
DX: I35.0 Nonrheumatic aortic (valve) stenosis (principal); I51.3 Intracardiac thrombosis, not elsewhere classified
CPT/HCPCS: 93306; Q9950

== ENCOUNTER 2024-10-16 10:32 | Outpatient (RCR) | payer OTHER, SELFPAY | END 2024-10-16 23:59 | disposition home or self-care (01) | LOC: CRHB 10:32 | PROVIDERS: ATTENDING PHYSICIAN Internal Medicine Cardiovascular Disease; FAMILY PHYSICIAN Family Medicine | DX: Z95.2 Presence of prosthetic heart valve (principal) | CPT/HCPCS: G0422; G0423 ==

== ENCOUNTER 2024-10-23 10:05 | Outpatient (RCR) | payer OTHER, SELFPAY | END 2024-10-23 14:35 | disposition home or self-care (01) | LOC: CRHB 10:05 | PROVIDERS: ATTENDING PHYSICIAN Internal Medicine Cardiovascular Disease; FAMILY PHYSICIAN Family Medicine | DX: Z95.2 Presence of prosthetic heart valve (principal) | CPT/HCPCS: G0422; G0423 ==

== ENCOUNTER 2024-11-05 06:30 | Day surgery (SDC) | payer OTHER, SELFPAY ==
[2024-11-05 12:22] VITALS: BMI 27.2
[2024-11-05 12:23] VITALS: BMI 27.2
[2024-11-05 12:29] VITALS: BP 146/63
[2024-11-05 13:34] VITALS: BP 115/53
[2024-11-05 13:45] VITALS: BP 129/68
[2024-11-05 14:00] VITALS: BP 129/59
== END 2024-11-05 14:23 | disposition home or self-care (01) ==
LOC: GI 06:30
PROVIDERS: ATTENDING PHYSICIAN Surgery
DX: K62.5 Hemorrhage of anus and rectum (principal); K62.7 Radiation proctitis; Y84.2 Radiological procedure and radiotherapy as the cause of abnormal reaction of the patient, or of later complication, without mention of misadventure at the time of the procedure; K62.6 Ulcer of anus and rectum
CPT/HCPCS: 45334

== ENCOUNTER 2024-12-08 14:35 | Inpatient (IN) | payer OTHER, SELFPAY ==
[2024-12-07] VITALS (7 sets, daily range): BP systolic 123–151; BP diastolic 54–71; BMI 29.5
[2024-12-07 19:45] LABS: Glucose - Point of Care 121 mg/dl (70-99)
--- NOTE | 2024-12-07 19:53 | ED.CVA ---
History of Present Illness
General
Chief Complaint: CVA/TIA Symptoms
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
Time Seen by Provider: 12/07/24 19:52
Onset of Stroke Symptoms
Onset of symptoms known: Yes
Date of onset of symptoms: 12/07/24
History of Present Illness
History of Present Illness:
Note:
CHIEF COMPLAINT(S)
Acute onset left-sided weakness and slurred speech.
HISTORY OF PRESENT ILLNESS
The patient is an 84yo adult male presenting with acute onset of neurological symptoms, including left-sided weakness and slurred speech that began approximately 30 minutes prior to evaluation. The patient reports having held a watering can before
the incident and subsequently dropped it due to weakness in the left hand. Weakness was also noted in the left arm. The patient denies any current left-sided weakness as sx's have improved. Previously experienced left-sided weakness has since
improved, but slurred speech persists. No recent headaches have been reported. The patient is on an anticoagulation regimen with apixaban (Eliquis), taken twice a day, though it appears there might have been an issue with timing of doses recently.
PHYSICAL EXAM
- Neurological: Initial examination reveals slurred speech. However, the left-sided motor function appears improved on current examination, with no significant weakness upon testing. Eye movements are normal, with normal peripheral vision. Improved
clarity of speech noted over the course of the examination. Cranial nerve examination shows no further deficits, with full range of tongue movement and symmetrical facial expressions. No pronator drift. Normal [id number]. No aphasia
CONSTITUTIONAL Patient alert and oriented to person, place and time. Well-appearing. Vital signs reviewed.
HEAD atraumatic, normocephalic.
EYES eyelids normal to inspection, Extraocular muscles intact, Conjunctiva normal, Sclera normal.
NECK normal range of motion, Trachea midline, no jugular venous distention.
RESPIRATORY CHEST No respiratory distress noted, Chest expansion equal, Bilateral breath sounds clear.
CARDIOVASCULAR regular rate and rhythm, Heart sounds normal.
UPPER EXTREMITY range of motion normal, Motor strength normal, no cyanosis, no edema.
LOWER EXTREMITY range of motion normal, Motor strength normal, no cyanosis, no edema.
- Nursing notes reviewed and vital signs reviewed.
MEDICATIONS
Apixaban (Eliquis), taken twice daily.
PLAN
- Obtain a CT scan of the head to rule out acute intracranial pathology.
- Monitor neurological symptoms closely.
- Given the patients rapid symptomatic improvement and current anticoagulation therapy with apixaban, the decision was made to withhold thrombolytic therapy at this time.
- Evaluate patient records for any chronic conditions or missed doses of apixaban that may influence management.
DIFFERENTIAL DIAGNOSIS
The Differential Diagnosis includes, in no particular order and is not limited to:
- Transient ischemic attack (TIA)
- Ischemic stroke
- Hemorrhagic stroke
- Seizure event with postictal weakness
- Intracranial tumor
- Migraine with aura
- Hypoglycemia
- Multiple sclerosis exacerbation
- Ely palsy
- Conversion disorder
CARE-UPDATE
12/07/24 - 21:34
Symptoms have significantly resolved, with the patient feeling greatly improved compared to the initial assessment. Radiology reports indicate no acute vascular occlusion and no new changes in perfusion, aside from the previously identified old CVA.
Continue monitoring for any recurrence of symptoms, but no immediate adjustments to the treatment plan are necessary given the current improvement.
Disposition:
SUMMARY OF ENCOUNTER
The patient presented with acute onset left-sided weakness and slurred speech, symptoms that have significantly improved since admission. History includes severe aortic stenosis with TAVR and heart failure. Immediate assessment ruled out large
vessel occlusions via CT imaging. The patient was already on anticoagulation therapy with apixaban.
INDEPENDENT REVIEW OF LABS AND INTERPRETATION OF TESTS
My independent interpretation of the CT scan of the head is that there are no large vessel occlusions.
MEDICATION RECONCILIATION
The patient is on apixaban (Eliquis), taken twice daily. Thrombolytic therapy with TNK was considered but withheld due to improvement and current anticoagulation regimen.
MEDICAL DECISION MAKING
1. Number & Complexity of Problems: Chronic conditions affecting care include severe aortic stenosis, heart failure, and anticoagulation management with apixaban. Differential diagnoses include transient ischemic attack (TIA) and ischemic stroke.
2. Data Reviewed: CT scan of the head ordered and reviewed.
3. Risk: Consideration of admission was made due to complexity and risk. The patient was admitted for continued monitoring and further neurology evaluation.
CRITICAL CARE TIME
I provided 35 minutes of critical care time. Due to a high probability of clinically significant, life-threatening deterioration, I spent this time directly managing the patient following CMS-compliant language.
PATHOLOGIES TO CONSIDER
Stroke (focal neurologic deficits + sudden onset).
Past History
Past History
ED Past Medical History: Cancer, COPD, CVA, HTN, Hypercholesterolemia, NIDDM and Psychiatric
ED Past Surgical History: Other (skin)
Social History
Tobacco: Former smoker
Alcohol: None
Drug: None
Personal:
Living: with family
Employment: Retired
Phy Exam
Physical Exam
Physical Exam:
.
Course
Orders/Labs/Results
Orders:
Orders
12/07/24 19:51
CT HEAD STROKE ALERT W/o Cont Stat
Comment:
Reason For Exam: slurred speech, left sided weakeness
12/07/24 19:53
CT BRAIN PERF STROKE ALERT Urgent
Comment:
Reason For Exam: dysarthria, L sided weakness
CT HEAD/NECK ANG STROKE ALERT Urgent
Comment:
Reason For Exam: dysarthria, L sided weakness
12/07/24 19:58
Complete Blood Count/With Diff Urgent
Comprehensive Metabolic Panel Urgent
Troponin I Urgent
12/07/24 22:28
Admit/Transfer Patient As Directed
Co-Sign Provider:
Level of Care: Observation services
Assign to:: Telemetry
Physician / Group: Adebamiro, Adedotun
Diagnosis: CVA/TIA
Reason for Telemetry: CVA/TIA
Date to Stop Telemetry: 12/10/24
Time to Stop Telemetry: 11:00
12/07/24 22:29
PRN Pain Medication Management As Directed
May give lesser potent ordered pain med per pt: Yes
preference::
Protocol:: Medication orders for pain may be administered in a
manner that supports deferring to patient preference
when the pt is:
- Requesting an ordered lesser potent pain medication.
Least to most potent pain medications are defined
as: acetaminophen < NSAID < tramadol < opioids
(morphine, oxycodone, hydromorphone).
- Requesting a lesser dose of the same medication IF
ORDERED.
- Requesting a less intrusive route of administration
if both routes are prescribed by the provider (PO <
IV).
12/07/24 22:30
Code Status As Directed
Resuscitation Status: Full Code
12/07/24 23:00
Flush (0.9% Sodium Chloride) [Flush (Nss)] See Dose Instructions IV PER PROTOCOL
12/10/24 11:00
DC Protocol for Telemetry ONCE
Abnormal Lab Results
12/07/24 12/07/24
19:42 19:58
WBC 4.7 L 10^3/uL
(4.8-10.8)
RBC 4.01 L 10^6/uL
(4.70-6.10)
Hgb 9.0 L g/dL
(13.0-18.0)
Hct 31.1 L %
(39.0-52.0)
MCV 77.6 L fL
(80.0-94.0)
MCH 22.4 L pg
(27.0-31.0)
MCHC 28.9 L g/dL
(33.0-37.0)
RDW 17.6 H %
(11.5-14.5)
Absolute Lymphs (auto) 1.0 L 10^3/uL
(1.2-3.4)
BUN 22 H mg/dl
(9-20)
Glucose 118 H mg/dl
(70-99)
POC Glucose 121 H mg/dl
(70-99)
12/07/24 19:58
12/07/24 19:58
Vital Signs
Initial and Last Documented VS:
Initial Vital Signs
Temp Pulse Resp BP Pulse Ox
98.7 F 61 24 144/66 93
12/07/24 19:41 12/07/24 19:41 12/07/24 19:41 12/07/24 19:41 12/07/24 19:41
Last Documented Vital Signs
Temp Pulse Resp BP Pulse Ox
98.7 F 66 17 123/54 96
12/07/24 19:41 12/07/24 21:30 12/07/24 21:30 12/07/24 21:00 12/07/24 21:30
*Pulse Oximetry
SaO2: 93
Nasal Cannula flow liters per minute: 2
Patient hypoxic: yes
*Automobile Rental Clerk Interpretation
Rate: normal
Interpretation: normal
Rhythm: sinus
*Critical Care Note
Total Time (30-74mins, 75-104mins- exclusive of procedures): 35 minutes
ED Attending Note
-
Portions of this chart may have been created with voice recognition software.� Occasional wrong word or��sound alike� substitutions may have occurred due to the inherent limitations of voice recognition software.
Discharge Plan
Departure
Patient Disposition: Admit
Date of Disposition: 12/07/24
Time of Disposition: 21:39
Admit to: Telemetry
Presentation/result/management discussed w/ accepting MD/DO: Hospitalist
Discharge Problem:
TIA (transient ischemic attack)
Prescriptions:
No Action
tamsulosin 0.4 mg Capsule
0.4 mg PO BID
metoprolol succinate 25 mg Tablet Extended Release 24 Hr
25 mg PO HS
Eliquis 5 mg Tablet
5 mg PO BID
atorvastatin [Lipitor] 40 mg Tablet
80 mg PO QPM
escitalopram oxalate 10 mg tablet
10 mg PO DAILY
Trelegy Ellipta 100-62.5-25 mcg blister with device
1 inh INHALATION R DAILY
furosemide [Lasix] 40 mg tablet
40 mg PO BID Qty: 60 0RF
potassium chloride 20 mEq tablet extended release
20 meq PO QPM
potassium chloride 20 mEq Tablet Extended Release
40 meq PO DAILY
mirabegron [Myrbetriq] 50 mg Tablet Extended Release 24 Hr
50 mg PO DAILY
Jardiance 10 mg Tablet
10 mg PO DAILY
Referrals:
Glenn Hanson MD [Family Provider, Family Practice]
Interventions
Interventions:
*Risk Screen - Suicide Last Done: 12/07/24 20:24
*General Assessment Last Done: 12/07/24 20:24
*Neglect/Abuse Screening Last Done: 12/07/24 20:24
*ED- Fall Risk Assessment Last Done: 12/07/24 20:24
ED- Pulmonary Assessment Last Done: 12/07/24 20:24
ED- Neurological Assessment Last Done: 12/07/24 21:52
ED- Cardiac Assessment Last Done: 12/07/24 20:24
ED Swallowing Screen Last Done: 12/07/24 19:50
Discharge Date and Time
Print Language: PRYDEINIG
[2024-12-07 20:28] LABS: White Blood Cell Count 4.7 10^3/uL (4.8-10.8)
[2024-12-07 20:29] LABS: % Basophils 0.6 % (0-2); % Eosinophils 3.4 % (0-6); % Immature Granulocytes 0.2 % (0-0.5); % Lymphocytes 21.5 % (20.5-51.1); % Monocytes 9.3 % (1.7-9.3); Absolute Eosinophils 0.2 10^3/uL (0-0.7); Absolute Monocytes 0.4 10^3/uL (0.1-0.6); Absolute Neutrophils 3.1 10^3/uL (1.4-6.5); Hematocrit 31.1 % (39.0-52.0); Mean Corp Hgb Conc. 28.9 g/dL (33.0-37.0); Mean Corpuscular Hgb 22.4 pg (27.0-31.0); Mean Corpuscular Volume 77.6 fL (80.0-94.0); Mean Platelet Volume 8.9 fL (7.4-10.4); Nucleated Red Blood Cells % 0 % (-); Platelet Count 144 10^3/uL (130-400); Red Blood Cell Count 4.01 10^6/uL (4.70-6.10); Red Cell Dist. Width 17.6 % (11.5-14.5)
[2024-12-07 20:30] LABS: Hypochromasia 3+; Microcytosis 4+; Normal RBC Morphology No
[2024-12-07 20:31] LABS: Troponin I < 0.012 ng/ml
[2024-12-07 20:33] LABS: ALT (SGPT) 20 U/L (0-50); AST (SGOT) 22 U/L (17-59); Albumin 4.4 g/dl (3.5-5.0); Alkaline Phosphatase 101 U/L (38-126); Blood Urea Nitrogen 22 mg/dl (9-20); Calcium 9.2 mg/dl (8.4-10.2); Carbon Dioxide 28 mmol/L (22-30); Chloride 106 mmol/L (98-107); Estimated Creatinine Clearance 43 ml/min; Glucose 118 mg/dl (70-99); Potassium 3.9 mmol/L (3.5-5.1); Sodium 143 mmol/L (135-145); Total Bilirubin 0.5 mg/dl (0.2-1.3); Total Protein 7.2 g/dl (6.3-8.2); eGFR 59.63
--- NOTE | 2024-12-07 21:47 | HPS.HSE ---
Family Physician
-
Family Physician: Glenn Hanson
Chief Complaint
-
left-sided weakness and slurred speech
History of Present Illness
Patient is a 84-year-old male with past medical history significant for hypertension, hyperlipidemia, CVA, coronary artery disease, type 2 diabetes mellitus, HFrEF, dilated nonischemic cardiomyopathy, COPD on home oxygen and anxiety who presented to
[facility] ED for evaluation of left-sided weakness and slurred speech. Patient reports he was watering his garden when left arm and hand became suddenly numb and weak, he dropped watering can and went into house where he and report patient had
slurred speech. He recalls feeling mildly dizzy. Denies any headache, vision changes, palpitations, chest pain or shortness of breath.
Medical History
Past Medical History
Past Medical History: Reports Other
Additional Past Medical History:
hypertension
hyperlipidemia
CVA
coronary artery disease
type 2 diabetes mellitus
HFrEF
dilated nonischemic cardiomyopathy
COPD on home oxygen
anxiety
obstructive sleep apnea
daily alcohol use
history of left ventricular apical thrombus
severe aortic stenosis
prostate cancer
Past Surgical History: Reports Other
Additional Past Surgical History:
Mohs microsurgery of the right leg
cataract extraction
bilateral hernia repair as a child
TAVR
Social History
Tobacco: Former Smoker (approximate 50 pack year history, quit >10 years ago )
Alcohol: Daily (scotch 2 ounces daily )
Drug: None
Personal:
Living: With Family
Family History
Family History: Other (Father (): Parkinson's disease; Mother (): RI; brother (): brain cancer )
Allergies / Home Medications
Allergies reflects when Allergies were last updated in [facility].
Home Medications with original date entered in [facility]
Allergy/Medication List:
Allergies
Allergy/AdvReac Type Severity Reaction Status Date / Time
gabapentin Allergy Unknown Verified 11/05/24 12:17
Home Medications
apixaban 5 mg tablet (Eliquis) 5 mg PO BID Blood Clot Prevention/Tx 10/17/22
metoprolol succinate 25 mg tablet,extended release 24 hr 25 mg PO HS Heart Disease/Condition 10/17/22
tamsulosin 0.4 mg capsule 0.4 mg PO BID Urinary Issue 10/17/22
atorvastatin 40 mg tablet (Lipitor) 80 mg PO QPM High Cholesterol 01/16/23
escitalopram oxalate 10 mg tablet 10 mg PO DAILY Mental Health/Anxiety 06/09/23
fluticasone fur. 100 mcg-umeclid 62.5 mcg-vilant 25 mcg inhalat.powder (Trelegy Ellipta) 1 inh inhalation R DAILY Lung/Breathing Issues 06/09/23
furosemide 40 mg tablet (Lasix) 40 mg PO BID Fluid Retention/Swelling #60 tabs 03/30/24
potassium chloride 20 mEq tablet,extended release 20 meq PO QPM Electrolyte Repletion 03/30/24
empagliflozin 10 mg tablet (Jardiance) 10 mg PO DAILY 12/07/24
mirabegron 50 mg tablet,extended release 24 hr (Myrbetriq) 50 mg PO DAILY 12/07/24
potassium chloride 20 mEq tablet,extended release 40 meq PO DAILY 12/07/24
Review of Systems
-
History Source: Patient
Constitutional: Reports No Symptoms
EENT: Reports No Symptoms
Respiratory: Reports No Symptoms
Cardiac: Reports No Symptoms
Abdomen/GI: Reports No Symptoms
: Reports No Symptoms
Musculoskeletal: Reports No Symptoms
Skin: Reports No Symptoms
Neurological: Reports Dizzy, Weakness (LUE ) and Numbness (LUE )
Endocrine: Reports No Symptoms
Hematologic/Lymphatic: Reports No Symptoms
Psych: Reports No Symptoms
Physical Exam
Vital Signs
Vital Signs
Temp Pulse Resp BP Pulse Ox
98.7 F 66 17 123/54 96
12/07/24 19:41 12/07/24 21:30 12/07/24 21:30 12/07/24 21:00 12/07/24 21:30
Physical Exam
General: Well Developed, Well Nourished, No Apparent Distress, Comfortable and Conversant
HEENT: NormoCephalic, Moist mucous membranes, Atraumatic, [place] Conjunctivae, Nose Appears Normal and Ears Appear Normal
Respiratory: Clear
Cardiac: S1/S2 and Regular Rhythm
GI: Soft, Non Tender, Non Distended and Normal Bowel Sounds; No Organomegaly
Rectal: Deferred by Provider
Genito-urinary: Deferred by me
Musculoskeletal: No Clubbing, No Cyanosis and No Edema
Skin: Warm and IV/Catheter Site
Neuro: Awake, Alert, AO x 3 and Nonfocal/grossly intact
Psych: Calm and Intact Judgment/Insight
Laboratory Results
-
12/07/24 19:58
12/07/24 19:58
Laboratory Results
Total Bilirubin 0.5 mg/dl (0.2-1.3) 12/07/24 19:58
AST 22 U/L (17-59) 12/07/24 19:58
ALT 20 U/L (0-50) 12/07/24 19:58
Alkaline Phosphatase 101 U/L (38-126) 12/07/24 19:58
Troponin I < 0.012 ng/ml 12/07/24 19:58
Data Reviewed
-
CT Scan: Report Reviewed by me (Head: 1. No CT evidence for acute intracranial hemorrhage or transcortical infarct. 2. LARGE CHRONIC TRANSCORTICAL INFARCT in the RIGHT MIDDLE CEREBRAL ARTERY TERRITORY with encephalomalacia in the right frontal
lobe, right parietal lobe, and right insular cortex which appears unchanged. 3. Sm)
Lab Data: Labs Reviewed by me (hgb 9.0, hct 31.1)
Impression/Plan
-
IMPRESSION/PLAN:
#CVA vs. TIA
#Hx CVA
Head CT: 1. No CT evidence for acute intracranial hemorrhage or transcortical infarct.
2. LARGE CHRONIC TRANSCORTICAL INFARCT in the RIGHT MIDDLE CEREBRAL ARTERY TERRITORY with encephalomalacia in the right frontal lobe, right parietal lobe, and right insular cortex
which appears unchanged.
3. Small chronic infarct in the right cerebellar hemisphere.
4. Moderate diffuse global cerebral and cerebellar volume loss.
5. Calcific atherosclerotic plaque in the anterior and posterior intracranial circulations.
ASPECT score: 10 (excluding the large chronic transcortical infarct in the right middle cerebral artery territory).
- Admit to telemetry
- Consult Neurology
- MRI in morning
- NIH and neurochecks overnight
#hypertension
- continue metoprolol
#coronary artery disease
#hyperlipidemia
- continue atorvastatin
#type 2 diabetes mellitus
- continue empagliflozin
- AccuCheck AC & HS
#HFrEF
#dilated nonischemic cardiomyopathy
ECHO (09/13/2024): Normal left ventricular size, wall thickness and systolic function. LV ejection fraction is 53% by Hernandez's biplane method of discs. Apical akinesis.
Echodensity consistent with thrombus in the apical inferior region. Normal diastolic function.
Thickened mitral valve leaflets. Mitral valve opens normally. Mitral annular calcification. Mild mitral regurgitation.
S/P #29 Camarena TAVR. Peak/mean gradients across the aortic valve are 25/15mmHg respectively. Trace aortic regurgitation is seen.
Tricuspid valve opens normally. Mild tricuspid regurgitation. Estimated pulmonary artery pressure of 57 mmHg assuming a right atrial pressure of 3mmHg.
Since echocardiogram April 2024 which was reviewed, there is echodensity in the inferior apex consistent with thrombus. Reviewed echoes in the past and echodensity is
similar to thrombus that was noted in September 2020 but has not been seen until the current echo.
- daily weights
- I & Os
- continue furosemide and potassium chloride
#COPD
on home oxygen
- continue Trelegy
#anxiety
- continue escitalopram
#history of left ventricular apical thrombus
- continue Eliquis
#prostate cancer
- continue tamsulosin
#severe aortic stenosis
#obstructive sleep apnea
#daily alcohol use
Code status: full code
DVT prophylaxis: SCDs
--- NOTE | 2024-12-07 21:57 | W.PN.UPDATE ---
Update Note
Progress Note Update
Patient seen in conjunction with EVENT MARKETING MANAGER. I agree the findings on history and physical. I concur with the assessment plan unless stated otherwise.
This is a 84-year-old with past medical history significant for congestive heart failure, severe s/p TAVR, hypertension, hyperlipidemia, COPD, restrictive lung disease, CVA, CAD, SAÚL,h/o LV thrombus on AC, presents to the emergency department
following episode of transient focal neurological deficits. 30 minutes prior to arrival in the ED patient currently started having slowed speech and weakness of the left upper extremity. He notes the weakness in the left and as he had dropped a
watering can during the episode. By the time he arrived in emergency department the left-sided weakness had improved. Is still had slurring of speech however on repeat examination in the ED he is slurred speech appears to have also resolved. Has
a prior history of CVA without residual deficits currently. He has been on anticoagulation and statin.
In the emergency department initial blood pressure was stable at 124/50 with a pulse of 66 and he was satting 96% on room air. ECG pending, troponin negative, CT of the head shows chronic transcortical infarct in the right middle cerebral artery
territory with encephalomalacia in the right frontal lobe, right parietal lobe and right insular cortex which is unchanged.
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 Neck CTA, there is atheromatous disease bilateral carotid
bulbs and proximal internal carotid artery with approximately 50% narrowing moderate right carotid bulb, no other hemodynamically significant stenosis dissection or aneurysm.
84-year-old with history of hypertension, hyperlipidemia, CHF, prior CVA, chronically anticoagulated on Eliquis will presents to the emergency department with transient slurred speech and left-sided weakness. This started about 30 minutes prior to
arrival in the emergency department. Both symptoms completely resolved at this time with NIHSS equals 0. CT of the head shows no acute findings. CT angio with a 3 mm aneurysm in the left anterior communicating artery, chronic absent right
vertebral artery, no significant dissection stenosis or aneurysm otherwise. He is well-appearing with dynamically stable and in no acute distress. Suspect TIA with abcd2 score of 2 putting him at moderate risk of impending stroke.
- admit to telemetry observation
- neurochecks q 6
- orthostatics
- continue apixaban
- continue statin
- check mri brain, if any new infarct would need cardiac imaging for possible ac failure
- neurology consultation
Other issues appears stable
- continue lasix, jardiance and metoprolol
- continue cpap
- continue tamsulosin/
[2024-12-08] VITALS (8 sets, daily range): BP systolic 122–159; BP diastolic 55–61; PULSE 60–61; O2SAT 97–98; BMI 29.2
[2024-12-08 00:21] LABS: Urine Albumin 1+ (Neg - Trace); Urine Bilirubin Negative (Negative); Urine Character Clear (Clear); Urine Color Yellow; Urine Glucose 4+ (Negative); Urine Ketone Negative (Negative); Urine Leukocyte Negative (Negative); Urine Nitrite Negative (Negative); Urine Occult Blood Negative (Negative); Urine Urobilinogen Negative (Neg - 1+)
[2024-12-08 01:08] LABS: Urine Amorphous Seen; Urine Bacteria Few (Negative); Urine Red Blood Cell 0-2 /HPF (0-2); Urine White Cell 0-2 /HPF (0-5)
[2024-12-08 07:13] LABS: INR 1.09; PT 14.4 Sec (11.4-14.6)
[2024-12-08 07:14] LABS: APTT 30.7 Sec (23.4-35.0)
--- NOTE | 2024-12-08 07:32 | CON.NEURO ---
Consultation
Order
Date of Consultation: 12/08/24
Requesting Provider: Carmen Roblero CRNP
Reason for Consult: TIA
HPI: This is a 84-year-old left-handed who presented to the [facility] on 12/07/2024 with transient motor deficits. The patient reports an episode yesterday around 6:30 PM while watering plants outside. He experienced weakness in his left
hand, causing him to drop the watering can. The episode lasted for a couple of minutes and was accompanied by dysarthria. He did not experience any sensory symptoms, change in balance or vision.
The patient states he has experienced similar episodes in the past, though he cannot recall specific details or which side was affected, as it was 'years ago.' He does have chronic intermittent left arm numbness upon wakening.
The patient manages his own medications. He denies intentionally skipping doses or stopping Eliquis. H
ER VS: 144/66, 61, afebrile.
EKG: NSR, QTc Int : 437 ms.
PDMP: No recently prescribed medications.
Labs: Glucose�118, WBCs�4.7, hemoglobin�9, normal sodium, LDL�53, UA�positive for albumin, glucose, bacteria.
CT head wo -chronic right MCA infarct contrast.
CTA head/neck�age indeterminate L vert occlusion, 3 mm left A2 aneurysm, no significant OCA stenosis.
PMH: h/o LV apical thrombus on AC, h/o C1-C2 fracture, Prostate cancer, chronic hypoxic respiratory failure, restrictive lung disease, CAD, HTN, DLP, DM, HFrEF, GERD, SAÚL, HANS, post RT proctitis, alcohol use disorder
PSH: Bilateral cataract surgery, PTCI, TAVR, Mohs procedure, hernia repair
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
FH: father�Parkinson disease, mother�cancer
All: Gabapentin
ROS: Constitutional: Negative. Negative for chills, fever and unexpected weight change.
HENT: For chronic hearing impairment
Eyes: Negative. Negative for photophobia, pain and visual disturbance.
Respiratory: Positive for dyspnea on exertion
Cardiovascular: Negative for chest pain, palpitations and leg swelling.
Gastrointestinal: Negative for abdominal pain and vomiting.
Endocrine: Negative. Negative for cold intolerance.
Genitourinary: Negative for dysuria, flank pain and urgency.
Musculoskeletal: Negative for back pain, gait problem, neck pain and neck stiffness.
Skin: Negative for rash.
Allergic/Immunologic: Negative. Negative for immunocompromised state.
Neurological: Positive for transient left hand weakness
Psychiatric/Behavioral: Negative for behavioral problems, confusion and hallucinations.
General: Well developed. In no acute distress.
Cardio: Regular rate and rhythm without murmur. Extremities are without cyanosis or edema.
Neuro:
Mental Status: Alert, oriented to person, place, not to date(endo of November). Mildly impaired attention. Follows complex requests across the midline. Comprehension, naming, and repetition intact. Labile mood
Cranial Nerves: Pupils are equally round, surgical. EOMs full. Visual saldivar full to confrontation. No ptosis. No nystagmus. V1-V3 intact to light touch and pinprick bilaterally, symmetric. Face symmetric. Impaired hearing AU. The palate
elevated well. SCMs and traps 5/5. Tongue midline. No dysarthria.
Motor: Normal bulk and tone. No pronator or arm drift. Strength 5/5 throughout. No clonus.
Sensory: neg extinction to DSS
Coordination: No dysmetria or tremor.
Gait: deferred
Assessment and Plan:
I. TIA. Differential diagnosis includes focal seizure. History of LV apical thrombus.
II. Chronic right MCA infarct
III. Mild encephalopathy, likely mixed.
IV. 3 mm left A2 aneurysm.
-Continue Telemetry monitoring
-Brain MRI without hans
-Hold Eliquis, start aspirin 81 mg once a day
-Please check vitamin B12,TFTs
-OP Neurosurgery evaluation
-Further workup will depend on brain MRI results
-PT.
-DVT prophylaxis.
I personally reviewed all radiology and labs along with past medical records pertinent to current medical problems. Total time spent in patient care is 60 minutes.
Thank you for allowing us to participate in the care of this patient. We will continue to follow. Please do not hesitate to contact us with any questions or concerns.
Subjective/Objective
Subjective Data
Date of Service: December 08, 2024
Objective Data
Vital Signs
Temp Pulse Resp BP Pulse Ox
36.8 C 62 18 137/61 95
12/08/24 03:11 12/08/24 03:11 12/08/24 03:11 12/08/24 03:11 12/08/24 03:11
Lab Results
12/07/24 19:58
12/07/24 19:58
Sodium 143 mmol/L (135-145) 12/07/24 19:58
Potassium 3.9 mmol/L (3.5-5.1) 12/07/24 19:58
BUN 22 mg/dl (9-20) H 12/07/24 19:58
Glucose 118 mg/dl (70-99) H 12/07/24 19:58
Calcium 9.2 mg/dl (8.4-10.2) 12/07/24 19:58
Patient Allergies
gabapentin Allergy (Verified 11/05/24 12:17)
Unknown
Medications
-
Active Medications
Generic Name Dose Route Start Last Admin
Trade Name Freq PRN Reason Stop Dose Admin
Acetaminophen 650 mg 12/08/24 00:05
Acetaminophen 325 Mg Tablet PO 01/05/25 00:04
Q4HPRN PRN
LEDESMA, mild pain, or temp >100.4F
Apixaban 5 mg 12/08/24 08:00
Apixaban (Eliquis) 5 Mg Tablet PO 01/05/25 07:59
BID ANDREY
Atorvastatin Calcium 80 mg 12/08/24 18:00
Atorvastatin (Lipitor) 40 Mg Tablet PO 01/05/25 17:59
QPM ANDREY
Budesonide/Formoterol Fumarate 2 puff 12/08/24 08:00
Symbicort Inhaler 80/4.5 INH 01/05/25 07:59
R BID ANDREY
Dapagliflozin 10 mg 12/08/24 08:00
Dapagliflozin (Farxiga) 10 Mg Tablet PO 01/05/25 07:59
DAILY ANDREY
Escitalopram Oxalate 10 mg 12/08/24 08:00
Escitalopram 10 Mg Tablet PO 01/05/25 07:59
DAILY ANDREY
Furosemide 40 mg 12/08/24 08:00
Furosemide 40 Mg Tablet PO 01/05/25 07:59
BID ANDREY
Metoprolol Succinate 25 mg 12/08/24 22:00
Metoprolol 25 Mg Extended Release Tablet PO 01/05/25 21:59
HS ANDREY
Mirabegron 50 mg 12/08/24 08:00
Mirabegron Extended Release 25 Mg Tab (Non Form) PO 01/05/25 07:59
DAILY ANDREY
Potassium Chloride 40 meq 12/08/24 08:00
Potassium Chloride 20 Meq Extended Release Tablet PO 01/05/25 07:59
DAILY ANDREY
Potassium Chloride 20 meq 12/08/24 18:00
Potassium Chloride 20 Meq Extended Release Tablet PO 01/05/25 17:59
QPM ANDREY
Sodium Chloride 0 flush 12/07/24 23:00
Sodium Chloride 0.9% (Flush) Syringe IV 01/04/25 22:59
PER PROTOCOL ANDREY
Tamsulosin HCl 0.4 mg 12/08/24 08:00
Tamsulosin 0.4 Mg Capsule PO 01/05/25 07:59
BID ANDREY
Home Medications
�Medication �Instructions �Recorded
apixaban 5 mg tablet (Eliquis) 5 mg PO BID Blood Clot 10/17/22
Prevention/Tx
metoprolol succinate 25 mg 25 mg PO HS Heart Disease/Condition 10/17/22
tablet,extended release 24 hr
tamsulosin 0.4 mg capsule 0.4 mg PO BID Urinary Issue 10/17/22
atorvastatin 40 mg tablet (Lipitor) 80 mg PO QPM High Cholesterol 01/16/23
escitalopram oxalate 10 mg tablet 10 mg PO DAILY Mental 06/09/23
Health/Anxiety
fluticasone fur. 100 mcg-umeclid 1 inh inhalation R DAILY 06/09/23
62.5 mcg-vilant 25 mcg Lung/Breathing Issues
inhalat.powder (Trelegy Ellipta)
furosemide 40 mg tablet (Lasix) 40 mg PO BID Fluid 03/30/24
Retention/Swelling #60 tabs
potassium chloride 20 mEq 20 meq PO QPM Electrolyte Repletion 03/30/24
tablet,extended release
empagliflozin 10 mg tablet 10 mg PO DAILY 12/07/24
(Jardiance)
mirabegron 50 mg tablet,extended 50 mg PO DAILY 12/07/24
release 24 hr (Myrbetriq)
potassium chloride 20 mEq 40 meq PO DAILY 12/07/24
tablet,extended release
Vital Signs and Labs
-
Vital Signs and Labs:
Vital Signs
Temp Pulse Resp BP Pulse Ox
36.9 C 52 16 137/61 97
12/08/24 07:23 12/08/24 08:08 12/08/24 08:08 12/08/24 07:23 12/08/24 08:08
Lab Results
12/07/24 19:58
12/07/24 19:58
PT 14.4 Sec (11.4-14.6) 12/08/24 05:36
INR 1.09 12/08/24 05:36
APTT 30.7 Sec (23.4-35.0) 12/08/24 05:36
Sodium 143 mmol/L (135-145) 12/07/24 19:58
Potassium 3.9 mmol/L (3.5-5.1) 12/07/24 19:58
BUN 22 mg/dl (9-20) H 12/07/24 19:58
Glucose 118 mg/dl (70-99) H 12/07/24 19:58
Calcium 9.2 mg/dl (8.4-10.2) 12/07/24 19:58
LDL Cholesterol, Calc 53 mg/dl 12/08/24 05:36
Medications
-
Medications:
Generic Name Dose Route Start Last Admin
Trade Name Freq PRN Reason Stop Dose Admin
Acetaminophen 650 mg 12/08/24 00:05
Acetaminophen 325 Mg Tablet PO 01/05/25 00:04
Q4HPRN PRN
LEDESMA, mild pain, or temp >100.4F
Apixaban 5 mg 12/08/24 08:00 12/08/24 08:37
Apixaban (Eliquis) 5 Mg Tablet PO 01/05/25 07:59 5 mg
BID ANDREY Administration
Atorvastatin Calcium 80 mg 12/08/24 18:00
Atorvastatin (Lipitor) 40 Mg Tablet PO 01/05/25 17:59
QPM ANDREY
Budesonide/Formoterol Fumarate 2 puff 12/08/24 08:00 12/08/24 08:02
Symbicort Inhaler 80/4.5 INH 01/05/25 07:59 2 puff
R BID ANDREY Administration
Dapagliflozin 10 mg 12/08/24 08:00 12/08/24 08:37
Dapagliflozin (Farxiga) 10 Mg Tablet PO 01/05/25 07:59 10 mg
DAILY ANDREY Administration
Escitalopram Oxalate 10 mg 12/08/24 08:00 12/08/24 08:37
Escitalopram 10 Mg Tablet PO 01/05/25 07:59 10 mg
DAILY ANDREY Administration
Furosemide 40 mg 12/08/24 08:00 12/08/24 08:37
Furosemide 40 Mg Tablet PO 01/05/25 07:59 40 mg
BID ANDREY Administration
Metoprolol Succinate 25 mg 12/08/24 22:00
Metoprolol 25 Mg Extended Release Tablet PO 01/05/25 21:59
HS ANDREY
Mirabegron 50 mg 12/08/24 08:00 12/08/24 08:37
Mirabegron Extended Release 25 Mg Tab (Non Form) PO 01/05/25 07:59 50 mg
DAILY ANDREY Administration
Potassium Chloride 40 meq 12/08/24 08:00 12/08/24 08:37
Potassium Chloride 20 Meq Extended Release Tablet PO 01/05/25 07:59 40 meq
DAILY ANDREY Administration
Potassium Chloride 20 meq 12/08/24 18:00
Potassium Chloride 20 Meq Extended Release Tablet PO 01/05/25 17:59
QPM ANDREY
Sodium Chloride 0 flush 12/07/24 23:00
Sodium Chloride 0.9% (Flush) Syringe IV 01/04/25 22:59
PER PROTOCOL ANDREY
Tamsulosin HCl 0.4 mg 12/08/24 08:00 12/08/24 08:37
Tamsulosin 0.4 Mg Capsule PO 01/05/25 07:59 0.4 mg
BID ANDREY Administration
Home Medications
-
Home Medications
apixaban 5 mg tablet (Eliquis) 5 mg PO BID Blood Clot Prevention/Tx 10/17/22
metoprolol succinate 25 mg tablet,extended release 24 hr 25 mg PO HS Heart Disease/Condition 10/17/22
tamsulosin 0.4 mg capsule 0.4 mg PO BID Urinary Issue 10/17/22
atorvastatin 40 mg tablet (Lipitor) 80 mg PO QPM High Cholesterol 01/16/23
escitalopram oxalate 10 mg tablet 10 mg PO DAILY Mental Health/Anxiety 06/09/23
fluticasone fur. 100 mcg-umeclid 62.5 mcg-vilant 25 mcg inhalat.powder (Trelegy Ellipta) 1 inh inhalation R DAILY Lung/Breathing Issues 06/09/23
furosemide 40 mg tablet (Lasix) 40 mg PO BID Fluid Retention/Swelling #60 tabs 03/30/24
potassium chloride 20 mEq tablet,extended release 20 meq PO QPM Electrolyte Repletion 03/30/24
empagliflozin 10 mg tablet (Jardiance) 10 mg PO DAILY 12/07/24
mirabegron 50 mg tablet,extended release 24 hr (Myrbetriq) 50 mg PO DAILY 12/07/24
potassium chloride 20 mEq tablet,extended release 40 meq PO DAILY 12/07/24
[2024-12-08 07:33] LABS: HDL Cholesterol 45 mg/dl; LDL Cholesterol, Calculated 53 mg/dl; Total Cholesterol 112 mg/dl (50-199); Triglyceride 74 mg/dl (10-149); Very Low Density Lipoprotein 14 mg/dl (0-30)
[2024-12-08] MEDS: SYMBICORT 80/4.5 MCG INHALER 2 PUFF INH ×2 (08:02→19:25)
[2024-12-08 08:12] LABS: Erythrocyte Sed Rate 35 mm/hour (0-20)
[2024-12-08] MEDS: KCL 40 MEQ PO (08:37)
[2024-12-08] MEDS: FLOMAX 0.4 MG PO ×2 (08:37→21:26)
[2024-12-08] MEDS: FARXIGA 10 MG PO (08:37)
[2024-12-08] MEDS: MYRBETRIQ EXTENDED RELEASE 50 MG PO (08:37)
[2024-12-08] MEDS: LEXAPRO 10 MG PO (08:37)
[2024-12-08] MEDS: LASIX 40 MG PO ×2 (08:37→21:25)
[2024-12-08] MEDS: ELIQUIS 5 MG PO ×2 (08:37→21:26)
--- NOTE | 2024-12-08 09:33 | PTOTSP ---
Dysphagia Evaluation
Patient presents with signs concerning for WFL-mild dysphagia. Acute on chronic risk factors include concern for CVA vs TIA; chronic right sided CVA, COPD, HFrEF. Patient has not had any known dysphagia/aspiration complications.
Patient also with mild dysarthria but per patient/spouse speech is at his BASELINE.
Recommend:
1. IDDSI Level 7 Regular, Thin Liquids
2. Medications: as best tolerated
3. Strategies: alternate solids with sips of liquid, cough if wet vocal quality noted
4. Oral care 3x daily to reduce risk for aspiration complications
5. Speech/language/cognitive evaluation pending results of MRI of Brain
6. Brief dysphagia f/u for instruction in compensations and to determine if instrumental swallowing assessment warranted
--- NOTE | 2024-12-08 11:02 | W.PN.HOSP.TC ---
Today's Communication/Plan
-
monitor vitals
see plan
MRI pending
asa per neurology
cw neurochecks
PT
Assessment / Plan
Assessment / Plan
General: Well Developed, Well Nourished, No Apparent Distress, Comfortable and Conversant
HEENT: NormoCephalic, Moist mucous membranes, Atraumatic, [place] Conjunctivae, Nose Appears Normal and Ears Appear Normal
Respiratory: Clear
Cardiac: S1/S2 and Regular Rhythm
GI: Soft, Non Tender, Non Distended and Normal Bowel Sounds
Musculoskeletal:No Edema
Neuro: Awake, Alert, AO x 3 and Nonfocal/grossly intact
Psych: Calm and Intact Judgment/Insight
Slurred speech and left-sided weakness likely secondary to TIA/CVA
#Hx CVA
Head CT: 1. No CT evidence for acute intracranial hemorrhage or transcortical infarct.
2. LARGE CHRONIC TRANSCORTICAL INFARCT in the RIGHT MIDDLE CEREBRAL ARTERY TERRITORY with encephalomalacia in the right frontal lobe, right parietal lobe, and right insular cortex
which appears unchanged.
3. Small chronic infarct in the right cerebellar hemisphere.
4. Moderate diffuse global cerebral and cerebellar volume loss.
5. Calcific atherosclerotic plaque in the anterior and posterior intracranial circulations.
ASPECT score: 10 (excluding the large chronic transcortical infarct in the right middle cerebral artery territory).
Neurology following, stopped Eliquis for now and started aspirin
MRI pending
Continue with neurochecks
PT evaluation
#hypertension
- continue metoprolol
#coronary artery disease
#hyperlipidemia
- continue atorvastatin
Suspect anemia of chronic disease
No bleeding noted
Monitor
#HFrEF
#dilated nonischemic cardiomyopathy
ECHO (09/13/2024): Normal left ventricular size, wall thickness and systolic function. LV ejection fraction is 53% by Hernandez's biplane method of discs. Apical akinesis.
Echodensity consistent with thrombus in the apical inferior region. Normal diastolic function.
Thickened mitral valve leaflets. Mitral valve opens normally. Mitral annular calcification. Mild mitral regurgitation.
S/P #29 [place] TAVR. Peak/mean gradients across the aortic valve are 25/15mmHg respectively. Trace aortic regurgitation is seen.
Tricuspid valve opens normally. Mild tricuspid regurgitation. Estimated pulmonary artery pressure of 57 mmHg assuming a right atrial pressure of 3mmHg.
Since echocardiogram April 2024 which was reviewed, there is echodensity in the inferior apex consistent with thrombus. Reviewed echoes in the past and echodensity is
similar to thrombus that was noted in September 2020 but has not been seen until the current echo.
- daily weights
- I & Os
- continue furosemide and potassium chloride
#COPD
on home oxygen
- continue Trelegy
#anxiety
- continue escitalopram
#history of left ventricular apical thrombus
- continue Eliquis
#prostate cancer
- continue tamsulosin
#severe aortic stenosis
#obstructive sleep apnea
#daily alcohol use
Code status: full code
DVT prophylaxis: SCDs
Anticipated Discharge: Within 24 hours
Subjective/Interval History
-
Date of Service: December 08, 2024
Denies pain
Objective Data
-
Labs:
Laboratory Results
12/08/24
05:36
PT 14.4
INR 1.09
APTT 30.7
Vital Signs:
Vital Signs
Temp Pulse Resp BP Pulse Ox
98.5 F 52 16 137/61 97
12/08/24 07:23 12/08/24 08:08 12/08/24 08:08 12/08/24 07:23 12/08/24 08:08
I&O
12/07/24 12/08/24 12/09/24
06:59 06:59 06:59
Output Total 700 / 700
Balance -700 / -700
[2024-12-08 12:33] LABS: Glycohemoglobin (HgbA1c) 5.7 % (4.0-5.6)
[2024-12-08 13:46] LABS: Glucose - Point of Care 157 mg/dl (70-99)
--- NOTE | 2024-12-08 14:04 | RR ---
Addendum entered by Joelle Hogan RN 12/08/24 14:51:
CT Head was not recommended after neurology evaluated patient at bedside.
Original Note:
After walking with PT/OT in hallway. Therapists notified nursing that patient has new left facial droop and increased slurring.
A Rapid Response and Stroke alert was called on this patient, please see Rapid Response form.
[2024-12-08 14:05] LABS: Vitamin B12 455 pg/ml (239-931)
[2024-12-08 14:10] LABS: Hematocrit 29.7 % (39.0-52.0); Hemoglobin 8.6 g/dL (13.0-18.0); Mean Corpuscular Hgb 22.5 pg (27.0-31.0); Mean Corpuscular Volume 77.5 fL (80.0-94.0); Mean Platelet Volume 8.8 fL (7.4-10.4); Platelet Count 132 10^3/uL (130-400); Red Blood Cell Count 3.83 10^6/uL (4.70-6.10); Red Cell Dist. Width 17.4 % (11.5-14.5)
[2024-12-08 14:26] LABS: ALT (SGPT) 20 U/L (0-50); AST (SGOT) 21 U/L (17-59); Alkaline Phosphatase 92 U/L (38-126); Blood Urea Nitrogen 18 mg/dl (9-20); Calcium 8.8 mg/dl (8.4-10.2); Carbon Dioxide 29 mmol/L (22-30); Chloride 106 mmol/L (98-107); Estimated Creatinine Clearance 47 ml/min; Glucose 131 mg/dl (70-99); Potassium 4.1 mmol/L (3.5-5.1); Sodium 142 mmol/L (135-145); Total Bilirubin 0.5 mg/dl (0.2-1.3); Total Protein 6.7 g/dl (6.3-8.2); eGFR > 60.00
[2024-12-08 14:29] LABS: INR 1.14; PT 14.9 Sec (11.4-14.6)
[2024-12-08 14:30] LABS: APTT 29.6 Sec (23.4-35.0)
--- NOTE | 2024-12-08 14:31 | W.PN.NEURO.1 ---
Today's Communication / Plan
-
.
Subjective/Objective
Subjective Data
Date of Service: December 08, 2024
Stroke alert.
Called in at: 13:46
Neurology follow-up note.
According to nursing personnel while walking with physical therapy in the hallway, patient experienced a prominent left facial weakness and dysarthria shortly before activation of the stroke alert. Mr. Naranjo reports no new motor, visual or
sensory deficits. The patient denies any headaches. 'I didn't feel anything' when asked about the observed changes during physical therapy.
FS: 157.
Brain MRI wo howard(12/08/2024) no evidence of acute infarcts. Chronic right MCA and cerebellar infarct.
CTA-no hemodynamically significant stenosis.
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
PSH: Bilateral cataract surgery, PTCI, TAVR, Mohs procedure, hernia repair
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
FH: father�Parkinson disease, mother�cancer
All: Gabapentin
ROS: Positive for transient left facial weakness and dysarthria
NIH Stroke Scale
1A Level of Consciousness: 0/3
1B LOC Questions: 0/2
1C LOC Commands: 0/2
2 Best Gaze: 0/2
3 Visual: 0/3
4 Facial Palsy: 0/3
5A Motor Arm LEFT: 0/4
5B Motor Arm RIGHT: 0/4
6A Motor Leg LEFT: 0/4
6B Motor Leg RIGHT: 0/4
7 Limb Ataxia: 0/2
8 Sensory: 0/2
9 Best Language: 0/3
10 Dysarthria: 1/2
11 Extinction/Inattention: 0/2
Total NIHSS: 1
Assessment and Plan:
I. 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
II. Chronic right MCA infarct
III. Mild encephalopathy, likely mixed.
IV. 3 mm left A2 aneurysm.
- Continue Telemetry monitoring
- Restart Eliquis, DC aspirin
- Start Keppra 1 g followed by 500 mg twice daily
- Routine EEG
- OP Neurosurgery evaluation
- Please check magnesium level
- PT.
- DVT prophylaxis.
I personally reviewed all radiology and labs along with past medical records pertinent to current medical problems. Total time spent in patient care is 36minutes.
Thank you for allowing us to participate in the care of this patient. Please do not hesitate to contact us with any questions or concerns.
Objective Data
Vital Signs
Temp Pulse Resp BP Pulse Ox
36.9 C 57 18 143/60 97
12/08/24 11:06 12/08/24 11:06 12/08/24 11:06 12/08/24 11:06 12/08/24 11:06
Lab Results
12/08/24 13:54
12/08/24 13:54
PT 14.4 Sec (11.4-14.6) 12/08/24 05:36
INR 1.09 12/08/24 05:36
APTT 30.7 Sec (23.4-35.0) 12/08/24 05:36
Sodium 142 mmol/L (135-145) 12/08/24 13:54
Potassium 4.1 mmol/L (3.5-5.1) 12/08/24 13:54
BUN 18 mg/dl (9-20) 12/08/24 13:54
Glucose 131 mg/dl (70-99) H 12/08/24 13:54
Calcium 8.8 mg/dl (8.4-10.2) 12/08/24 13:54
LDL Cholesterol, Calc 53 mg/dl 12/08/24 05:36
Vitamin B12 455 pg/ml (272-931) 12/08/24 12:36
Patient Allergies
gabapentin Allergy (Verified 11/05/24 12:17)
Unknown
Vital Signs and Labs
-
Vital Signs and Labs:
Vital Signs
Temp Pulse Resp BP Pulse Ox
36.9 C 57 18 143/60 97
12/08/24 11:06 12/08/24 11:06 12/08/24 11:06 12/08/24 11:06 12/08/24 11:06
Lab Results
12/08/24 13:54
12/08/24 13:54
PT 14.4 Sec (11.4-14.6) 12/08/24 05:36
INR 1.09 12/08/24 05:36
APTT 30.7 Sec (23.4-35.0) 12/08/24 05:36
Sodium 142 mmol/L (135-145) 12/08/24 13:54
Potassium 4.1 mmol/L (3.5-5.1) 12/08/24 13:54
BUN 18 mg/dl (9-20) 12/08/24 13:54
Glucose 131 mg/dl (70-99) H 12/08/24 13:54
Calcium 8.8 mg/dl (8.4-10.2) 12/08/24 13:54
LDL Cholesterol, Calc 53 mg/dl 12/08/24 05:36
Vitamin B12 455 pg/ml (655-009) 12/08/24 12:36
Medications
-
Medications:
Generic Name Dose Route Start Last Admin
Trade Name Freq PRN Reason Stop Dose Admin
Acetaminophen 650 mg 12/08/24 00:05
Acetaminophen 325 Mg Tablet PO 01/05/25 00:04
Q4HPRN PRN
LEDESMA, mild pain, or temp >100.4F
Apixaban 5 mg 12/08/24 20:00
Apixaban (Eliquis) 5 Mg Tablet PO 01/05/25 19:59
BID ANDREY
Atorvastatin Calcium 80 mg 12/08/24 18:00
Atorvastatin (Lipitor) 40 Mg Tablet PO 01/05/25 17:59
QPM ANDREY
Budesonide/Formoterol Fumarate 2 puff 12/08/24 08:00 12/08/24 08:02
Symbicort Inhaler 80/4.5 INH 01/05/25 07:59 2 puff
R BID ANDREY Administration
Dapagliflozin 10 mg 12/08/24 08:00 12/08/24 08:37
Dapagliflozin (Farxiga) 10 Mg Tablet PO 01/05/25 07:59 10 mg
DAILY ANDREY Administration
Escitalopram Oxalate 10 mg 12/08/24 08:00 12/08/24 08:37
Escitalopram 10 Mg Tablet PO 01/05/25 07:59 10 mg
DAILY ANDREY Administration
Furosemide 40 mg 12/08/24 08:00 12/08/24 08:37
Furosemide 40 Mg Tablet PO 01/05/25 07:59 40 mg
BID ANDREY Administration
Levetiracetam 1,000 mg 12/08/24 14:27
Levetiracetam (100 Mg/Ml) 500 Mg/5 Ml Vial IV 12/08/24 14:28
NOW STA
Levetiracetam 500 mg 12/08/24 20:00
Levetiracetam (100 Mg/Ml) 500 Mg/5 Ml Vial IV 01/05/25 19:59
Q12 ANDREY
Metoprolol Succinate 25 mg 12/08/24 22:00
Metoprolol 25 Mg Extended Release Tablet PO 01/05/25 21:59
HS ANDREY
Mirabegron 50 mg 12/08/24 08:00 12/08/24 08:37
Mirabegron Extended Release 25 Mg Tab (Non Form) PO 01/05/25 07:59 50 mg
DAILY ANDREY Administration
Potassium Chloride 40 meq 12/08/24 08:00 12/08/24 08:37
Potassium Chloride 20 Meq Extended Release Tablet PO 01/05/25 07:59 40 meq
DAILY ANDREY Administration
Potassium Chloride 20 meq 12/08/24 18:00
Potassium Chloride 20 Meq Extended Release Tablet PO 01/05/25 17:59
QPM ANDREY
Sodium Chloride 0 flush 12/07/24 23:00
Sodium Chloride 0.9% (Flush) Syringe IV 01/04/25 22:59
PER PROTOCOL ANDREY
Tamsulosin HCl 0.4 mg 12/08/24 08:00 12/08/24 08:37
Tamsulosin 0.4 Mg Capsule PO 01/05/25 07:59 0.4 mg
BID ANDREY Administration
Home Medications
-
Home Medications
apixaban 5 mg tablet (Eliquis) 5 mg PO BID Blood Clot Prevention/Tx 10/17/22
metoprolol succinate 25 mg tablet,extended release 24 hr 25 mg PO HS Heart Disease/Condition 10/17/22
tamsulosin 0.4 mg capsule 0.4 mg PO BID Urinary Issue 10/17/22
atorvastatin 40 mg tablet (Lipitor) 80 mg PO QPM High Cholesterol 01/16/23
escitalopram oxalate 10 mg tablet 10 mg PO DAILY Mental Health/Anxiety 06/09/23
fluticasone fur. 100 mcg-umeclid 62.5 mcg-vilant 25 mcg inhalat.powder (Trelegy Ellipta) 1 inh inhalation R DAILY Lung/Breathing Issues 06/09/23
furosemide 40 mg tablet (Lasix) 40 mg PO BID Fluid Retention/Swelling #60 tabs 03/30/24
potassium chloride 20 mEq tablet,extended release 20 meq PO QPM Electrolyte Repletion 03/30/24
empagliflozin 10 mg tablet (Jardiance) 10 mg PO DAILY 12/07/24
mirabegron 50 mg tablet,extended release 24 hr (Myrbetriq) 50 mg PO DAILY 12/07/24
potassium chloride 20 mEq tablet,extended release 40 meq PO DAILY 12/07/24
[2024-12-08 14:38] LABS: Troponin I < 0.012 ng/ml
[2024-12-08] MEDS: KEPPRA 1000 MG IV (14:52)
--- NOTE | 2024-12-08 15:06 | CM ---
Patient with Dx Slurred speech and left-sided weakness likely secondary to TIA/CVA, Probable focal seizures. Rapd response called today. Brain MRI today. O2 2L. Receiving IV Keppra. PT recommendation: TBD. OT recommends HH vs Outpt.
Met with patient and Genevieve;
the patient was A/O, conversant and speech was clear.
The patient resides with his in a 1 story house with 1 step at entrance.
The patient was independent in ADLs and ambulation.
DME - CPAP, home O2 concentrator and Inogen POC
No prior VN or SNF
PCP - Glenn Hanson
Pharmacy - [facility] [address], [place]
GRAHAM Letter completed.
Plan follow up after seen again by PT/recommendation known.
[2024-12-08 15:27] LABS: Magnesium 2.3 mg/dl (1.6-2.3)
[2024-12-08] MEDS: LIPITOR 80 MG PO (17:23)
[2024-12-08] MEDS: KCL 20 MEQ PO (17:23)
[2024-12-08] MEDS: KEPPRA 500 MG IV (21:25)
[2024-12-08] MEDS: TOPROL XL 25 MG PO (21:26)
[2024-12-09 03:58] VITALS: BP 127/65
[2024-12-09 06:00] VITALS: BMI 28.6
[2024-12-09 07:00] VITALS: BP 128/63
[2024-12-09 07:11] LABS: % Eosinophils 4.4 % (0-6); % Immature Granulocytes 0.5 % (0-0.5); % Lymphocytes 18.4 % (20.5-51.1); % Monocytes 11.8 % (1.7-9.3); % Neutrophils 63.9 % (42.2-75.2); Absolute Eosinophils 0.2 10^3/uL (0-0.7); Absolute Lymphocytes 0.8 10^3/uL (1.2-3.4); Absolute Monocytes 0.5 10^3/uL (0.1-0.6); Absolute Neutrophils 2.6 10^3/uL (1.4-6.5); Hematocrit 28.7 % (39.0-52.0); Hemoglobin 8.2 g/dL (13.0-18.0); Mean Corp Hgb Conc. 28.6 g/dL (33.0-37.0); Mean Corpuscular Hgb 22.5 pg (27.0-31.0); Mean Corpuscular Volume 78.6 fL (80.0-94.0); Mean Platelet Volume 9.6 fL (7.4-10.4); Nucleated Red Blood Cells % 0 % (-); Platelet Count 139 10^3/uL (130-400); Red Blood Cell Count 3.65 10^6/uL (4.70-6.10); Red Cell Dist. Width 17.6 % (11.5-14.5); White Blood Cell Count 4.1 10^3/uL (4.8-10.8)
[2024-12-09] MEDS: SYMBICORT 80/4.5 MCG INHALER 2 PUFF INH (07:13)
[2024-12-09 07:33] LABS: Blood Urea Nitrogen 15 mg/dl (9-20); Calcium 8.5 mg/dl (8.4-10.2); Carbon Dioxide 28 mmol/L (22-30); Chloride 109 mmol/L (98-107); Estimated Creatinine Clearance 51 ml/min; Glucose 94 mg/dl (70-99); Potassium 4.1 mmol/L (3.5-5.1); Sodium 143 mmol/L (135-145); eGFR > 60.00
[2024-12-09] MEDS: KEPPRA 500 MG IV (07:58)
[2024-12-09] MEDS: MYRBETRIQ EXTENDED RELEASE 50 MG PO (07:59)
[2024-12-09] MEDS: FARXIGA 10 MG PO (07:59)
[2024-12-09] MEDS: LEXAPRO 10 MG PO (08:00)
[2024-12-09] MEDS: KCL 40 MEQ PO (08:00)
[2024-12-09] MEDS: FLOMAX 0.4 MG PO (08:00)
[2024-12-09] MEDS: LASIX 40 MG PO (08:00)
[2024-12-09] MEDS: ELIQUIS 5 MG PO (08:00)
--- NOTE | 2024-12-09 10:17 | W.PN.HOSP.TC ---
Addendum entered and electronically signed by Yoel Avalos MD 12/09/24 14:20:
Routine EEG without seizure. Discussed with neurology and they are okay with patient LUIS Carmona transition to p.o. at discharge. Patient will follow-up with neurology closely outpatient. Patient instructed not to drive. Neurology will report DMV
if needed. Patient ambulated well with RN. Speech did not notice some slurring which could be old. Recommended video swallow study for which patient will follow-up with speech and PCP outpatient. No signs of aspiration at this time. Discharge
today
Time of discharge 38 minutes
Original Note:
Today's Communication/Plan
-
monitor vitals
See plan
Routine EEG
Neurology to see today
Continue with Mathew
Continue Eliquis
PT evaluation
Assessment / Plan
Assessment / Plan
General: Well Developed, Well Nourished, No Apparent Distress, Comfortable and Conversant
HEENT: NormoCephalic, Moist mucous membranes, Atraumatic, [place] Conjunctivae
Respiratory: Clear
Cardiac: S1/S2 and Regular Rhythm
GI: Soft, Non Tender, Non Distended and Normal Bowel Sounds
Musculoskeletal:No Edema
Neuro: Awake, Alert, AO x 3
Psych: Calm and Intact Judgment/Insight
Slurred speech and left-sided weakness likely secondary to probable focal seizure
#Hx CVA
Head CT: 1. No CT evidence for acute intracranial hemorrhage or transcortical infarct.
2. LARGE CHRONIC TRANSCORTICAL INFARCT in the RIGHT MIDDLE CEREBRAL ARTERY TERRITORY with encephalomalacia in the right frontal lobe, right parietal lobe, and right insular cortex
which appears unchanged.
3. Small chronic infarct in the right cerebellar hemisphere.
4. Moderate diffuse global cerebral and cerebellar volume loss.
5. Calcific atherosclerotic plaque in the anterior and posterior intracranial circulations.
ASPECT score: 10 (excluding the large chronic transcortical infarct in the right middle cerebral artery territory).
Neurology following, Cw eliquis
stroke alert 12/08; where neurology thought likely secondary to focal seizure. Keppra started. Routine EEG today
MRI without acute CVA
Continue with neurochecks
PT evaluation
#hypertension
- continue metoprolol
#coronary artery disease
#hyperlipidemia
- continue atorvastatin
Suspect anemia of chronic disease
No bleeding noted
Monitor
#HFrEF
#dilated nonischemic cardiomyopathy
ECHO (09/13/2024): Normal left ventricular size, wall thickness and systolic function. LV ejection fraction is 53% by Hernandez's biplane method of discs. Apical akinesis.
Echodensity consistent with thrombus in the apical inferior region. Normal diastolic function.
Thickened mitral valve leaflets. Mitral valve opens normally. Mitral annular calcification. Mild mitral regurgitation.
S/P #29 [place] TAVR. Peak/mean gradients across the aortic valve are 25/15mmHg respectively. Trace aortic regurgitation is seen.
Tricuspid valve opens normally. Mild tricuspid regurgitation. Estimated pulmonary artery pressure of 57 mmHg assuming a right atrial pressure of 3mmHg.
Since echocardiogram April 2024 which was reviewed, there is echodensity in the inferior apex consistent with thrombus. Reviewed echoes in the past and echodensity is
similar to thrombus that was noted in September 2020 but has not been seen until the current echo.
- daily weights
- I & Os
- continue furosemide and potassium chloride
#COPD
on home oxygen
- continue Trelegy
#anxiety
- continue escitalopram
#history of left ventricular apical thrombus
- continue Eliquis
#prostate cancer
- continue tamsulosin
#severe aortic stenosis
#obstructive sleep apnea
#daily alcohol use
Code status: full code
DVT prophylaxis: eliquis
Anticipated Discharge: Within 24 hours
Subjective/Interval History
-
Date of Service: December 09, 2024
denies pain
Objective Data
-
Labs:
Laboratory Results
12/09/24
05:50
WBC 4.1 L
Hgb 8.2 L
Hct 28.7 L
Plt Count 139
Sodium 143
Potassium 4.1
Chloride 109 H
Carbon Dioxide 28
BUN 15
Creatinine 1.0
Glucose 94
Calcium 8.5
Vital Signs:
Vital Signs
Temp Pulse Resp BP Pulse Ox
97.4 F 69 16 128/63 94
12/09/24 07:00 12/09/24 07:54 12/09/24 07:16 12/09/24 07:00 12/09/24 08:00
I&O
12/08/24 12/09/24 12/10/24
06:59 06:59 06:59
Intake Total 540 / 540
Output Total 700 / 700 1200 / 1200
Balance -700 / -700 -660 / -660
[2024-12-09 10:51] VITALS: BP 134/67
[2024-12-09 10:52] VITALS: BP 105/54; BP 125/54; BP 134/67; PULSE 61; PULSE 62; PULSE 64
--- NOTE | 2024-12-09 12:07 | CM ---
Pt changed to inpatient . IMM reviewed with pt and .
IMM signed and on chart.Offered VN pt and Genevieve declined need.
will drive pt home at [place].
Pt has home oxygen with [facility] . has portable tank in they care.
PLAN Home no needs
--- NOTE | 2024-12-09 12:15 | EEG.RPT ---
Electroencephalogram Report
Recording
Date of EE12/09/24
Type of EEG: Routine
Length of EEG recordin minutes
Done with Video Recording: Yes
Patient Status: Inpatient
Recording Conditions: Awake and Drowsy
Hyperventilation Performed: No
Photic Stimulation Performed: Yes
Report
LESS THAN 1 HOUR EEG REPORT
LESS THAN 1 HOUR EEG INTERPRETATION:
Likely unremarkable EEG for age
CLINICAL CORRELATION:
Although normative values not been established for a person of this advanced age, the patient�s symmetry of the background suggests that this study was unremarkable.
A normal EEG does not rule out a diagnosis of epilepsy. If clinical suspicion for seizure persists, a prolonged recording may be warranted.
Clinical correlation is advised.
METHODS:
A 21 channel digitized electroencephalogram (EEG) was performed using the 10/20 international system of electrode placement and one-lead of ECG recorded. The [employer] quantitative review system was utilized.
ELECTROENCEPHALOGRAPHER IMPRESSION(S):
Quality of study
Good
Background
There was an unremarkable anterior-posterior voltage gradient of alpha frequency.
With eye opening the background activity changed to a low voltage mixture of frequencies.
There were no significant asymmetries of background activity noted.
Sleep
Drowsiness present
Photic Stimulation
Produced metric driving at most intermediate flash frequencies
ECG
Normal sinus rhythm
--- NOTE | 2024-12-09 13:37 | W.PN.NEURO.1 ---
Today's Communication / Plan
-
Would convert levetiracetam to by mouth from IV
Restart ELIZ Magana aspirin
OP Neurosurgery evaluation if advancement of the aneurysm after 1 year MRI recheck
Neuro Assessment/Plan
Assessment
I. 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
II. Chronic right MCA infarct
III. Mild encephalopathy, likely mixed.
IV. 3 mm left A2 aneurysm
Plan
Would convert levetiracetam to by mouth from IV
Restart ELIZ Magana aspirin
OP Neurosurgery evaluation if advancement of the aneurysm after 1 year MRI recheck
Will follow as needed
Subjective/Objective
Subjective Data
Date of Service: December 09, 2024
Objective Data
Vital Signs
Temp Pulse Resp BP Pulse Ox
36.3 C 62 18 134/67 97
12/09/24 10:51 12/09/24 10:51 12/09/24 10:51 12/09/24 10:51 12/09/24 10:51
Lab Results
12/09/24 05:50
12/09/24 05:50
PT 14.9 Sec (11.4-14.6) H 12/08/24 13:54
INR 1.14 12/08/24 13:54
APTT 29.6 Sec (23.4-35.0) 12/08/24 13:54
Sodium 143 mmol/L (135-145) 12/09/24 05:50
Potassium 4.1 mmol/L (3.5-5.1) 12/09/24 05:50
BUN 15 mg/dl (9-20) 12/09/24 05:50
Glucose 94 mg/dl (70-99) 12/09/24 05:50
Calcium 8.5 mg/dl (8.4-10.2) 12/09/24 05:50
LDL Cholesterol, Calc 53 mg/dl 12/08/24 05:36
Vitamin B12 455 pg/ml (535-299) 12/08/24 12:36
Patient Allergies
gabapentin Allergy (Verified 11/05/24 12:17)
Unknown
Data Reviewed
-
MRI Head: Report Reviewed
Labs: Report Reviewed
Reviewed with: Physician
Old Records: Summarized
--- NOTE | 2024-12-09 14:21 | W.DCSUMMARY ---
Discharge Summary
Discharge Data
Date of Admission: 12/08/24
Date of Discharge: 12/09/24
-
Pending Results: No
Hospital Course
84-year-old male with past medical history of CVA, hypertension, CAD, anemia of chronic disease, CHF, dilated nonischemic cardiomyopathy, COPD, anxiety, left ventricular apical thrombus, prostate cancer, severe aortic stenosis, obstructive sleep
apnea came to the hospital with slurred speech and left-sided weakness which was initially thought was secondary to TIA/CVA. Patient had this episode again while in the hospital where neurology thought patient's symptoms are likely secondary to
focal seizure. MRI was negative for acute CVA. Patient was started on IV Keppra which was later transitioned to oral. Routine EEG was done which was negative for active seizure. Neurology recommended patient to follow-up closely with them
outpatient. Patient was instructed against driving and neurology reported they will report to [facility]. Once patient symptoms continue to improve on Keppra, he was then discharged home with instructions to follow-up with all his physicians outpatient.
Discharge Plan
-
Patient Disposition: Home (Routine Discharge)
Discharge Diagnosis/Procedures: Suspect focal seizure
History of hypertension
History of CVA
3 mm left A2 aneurysm
Diet: As tolerated
Activity: As tolerated
Driving Restrictions: Not until seen by your Dr
Bathing Restrictions: None
Other Services: ST
Activity Restrictions/Additional Instructions:
You cannot drive until you are instructed by neurology.
You will need a video swallow study, follow-up with your primary care provider
Outpatient neurosurgery evaluation if advancement of the aneurysm after 1 year MRI recheck
Referrals:
Pancho Jenkins MD [Active, Neurology] - in two to three weeks
Nathalia Salomon MD [Active, Neurosurgery]
Glenn Hanson MD [Family Provider, Family Practice] - in less than 1 week
Prescriptions:
New
levetiracetam [Keppra] 500 mg tablet
500 mg PO BID Qty: 60 0RF
Continued
tamsulosin 0.4 mg Capsule
0.4 mg PO BID
metoprolol succinate 25 mg Tablet Extended Release 24 Hr
25 mg PO HS
Eliquis 5 mg Tablet
5 mg PO BID
atorvastatin [Lipitor] 40 mg Tablet
80 mg PO QPM
escitalopram oxalate 10 mg tablet
10 mg PO DAILY
Trelegy Ellipta 100-62.5-25 mcg blister with device
1 inh INHALATION R DAILY
furosemide [Lasix] 40 mg tablet
40 mg PO BID Qty: 60 0RF
potassium chloride 20 mEq tablet extended release
20 meq PO QPM
potassium chloride 20 mEq Tablet Extended Release
40 meq PO DAILY
mirabegron [Myrbetriq] 50 mg Tablet Extended Release 24 Hr
50 mg PO DAILY
Jardiance 10 mg Tablet
10 mg PO DAILY
Discharge Orders:
Discharge Patient (As Directed); Ordered 12/09/24
Ordered By: Yoel Avalos
Discharge Date and Time
Discharge Date/Time: 12/09/24 15:35
Print Language: [place]
[2024-12-09 15:29] VITALS: BP 120/59
== END 2024-12-09 15:35 | disposition home or self-care (01) | DRG 101 ==
LOC: 4 EAST ACU 14:35
PROVIDERS: Nurse Practitioner Family; ADMITTING PHYSICIAN Internal Medicine; ATTENDING PHYSICIAN Internal Medicine; CONSULT PHYSICIAN Psychiatry & Neurology Neurology; EMERGENCY PHYSICIAN Emergency Medicine; FAMILY PHYSICIAN Family Medicine
DX: R56.9 Unspecified convulsions (principal); I50.22 Chronic systolic (congestive) heart failure; I42.0 Dilated cardiomyopathy; G93.40 Encephalopathy, unspecified; Z87.891 Personal history of nicotine dependence; I11.0 Hypertensive heart disease with heart failure; I25.10 Atherosclerotic heart disease of native coronary artery without angina pectoris; E78.00 Pure hypercholesterolemia, unspecified; J44.9 Chronic obstructive pulmonary disease, unspecified; Z99.81 Dependence on supplemental oxygen; F41.9 Anxiety disorder, unspecified; C61 Malignant neoplasm of prostate; Z85.46 Personal history of malignant neoplasm of prostate; Z86.73 Personal history of transient ischemic attack (TIA), and cerebral infarction without residual deficits; I72.8 Aneurysm of other specified arteries
CPT/HCPCS: 0042T; 70450; 70496; 70498; 70551; 80048; 80053; 80061; 81003; 81015; 82607; 82962; 83036; 83735; 84443; 84484; 85025; 85027; 85610; 85652; 85730; 86850; 86900; 86901; 92526; 92610; 93005; 94640; 95816; 97162; 97166; 99291; Q9967

== ENCOUNTER → 2024-12-26 08:46 | Outpatient (REF) | payer OTHER, SELFPAY | LOC: RST 08:46 | PROVIDERS: ATTENDING PHYSICIAN Family Medicine | DX: R13.10 Dysphagia, unspecified (principal) | CPT/HCPCS: 74230; 92611 ==

== ENCOUNTER 2025-02-11 09:37 | Outpatient (RCR) | payer OTHER, SELFPAY | END 2025-02-11 23:59 | disposition home or self-care (01) | LOC: ROT 09:37 | PROVIDERS: ATTENDING PHYSICIAN Registered Nurse Critical Care Medicine; FAMILY PHYSICIAN Family Medicine | DX: R56.9 Unspecified convulsions (principal); R29.898 Other symptoms and signs involving the musculoskeletal system; Z73.6 Limitation of activities due to disability; R26.2 Difficulty in walking, not elsewhere classified; M62.81 Muscle weakness (generalized) | CPT/HCPCS: 97110; 97112; 97163; 97530 ==

== ENCOUNTER 2025-02-23 10:53 | Emergency (ER) | payer OTHER, SELFPAY ==
[2025-02-23 10:55] VITALS: BP 98/72
--- NOTE | 2025-02-23 11:51 | ED.GENMED ---
History of Present Illness
<KADIE Logan - Last Filed: 02/23/25 14:19>
General
Chief Complaint: Musculo-Skeletal Complaint
Source: patient
Exam Limitations: none
Time Seen by Provider: 02/23/25 11:08
Nursing documentation reviewed up to this point in time: agreed with
History of Present Illness
History of Present Illness:
Patient is an 85-year-old male with past medical history of CHF hypertension COPD on home O2 hyperlipidemia ND valve replacement on Eliquis who complains of discomfort left fifth finger starting yesterday. Today he woke up and has continued pain
and noticed swelling and redness to the finger. He complains of pain to the proximal phalanx and PIP joint of the left fifth finger. He denies any injury though he does report he has been doing physical therapy here at the hospital squeezing a
ball with his fingers. He does not feel ill. He denies any fever or chills. No history of gout. Denies any bite/injury.
Past History
<KADIE Logan - Last Filed: 02/23/25 14:19>
Past History
ED Past Medical History: Cancer, COPD, CVA, HTN, Hypercholesterolemia, NIDDM and Psychiatric
ED Past Surgical History: Other (skin)
Social History
Tobacco: Former smoker
Alcohol: None
Drug: None
Personal:
Living: with family
Employment: Retired
Phy Exam
<KADIE Logan - Last Filed: 02/23/25 14:19>
General Physical Exam
General Presentation: no apparent distress
General age: appears stated age
General Skin: warm and dry
General Habitus: normal
General Mental: alert
General Hydration: appears well hydrated
Neurological Exam
Neurological Exam: alert and oriented x3
Musculoskeletal Exam
Musculoskeletal Exam: other (left 5th finger with + swelling erythema to prox phalynx able to flex with discomfort )
Skin Exam
Skin Exam: normal color and warm/dry
Psychiatric Exam
Psychiatric Exam: normal mood/affect
Course
<KADIE Logan - Last Filed: 02/23/25 14:19>
Orders/Labs/Results
Orders:
Orders
02/23/25 11:50
Acetaminophen [Tylenol] 650 mg PO NOW STA
02/23/25 11:51
Finger(s)/Thumb 2 View Lt [CR Finger(s)/thumb Min 2 Vw Lt] Urgent
Comment:
Reason For Exam: pain /redness/swelling
02/23/25 11:55
Acetaminophen [Tylenol] 650 mg .ROUTE .STK-MED ONE
02/23/25 14:03
Prednisone [Deltasone] 40 mg PO NOW STA
Vital Signs
Initial and Last Documented VS:
Initial Vital Signs
Temp Pulse Resp BP Pulse Ox
97.8 F 66 18 98/72 92
02/23/25 10:55 02/23/25 10:55 02/23/25 10:55 02/23/25 10:55 02/23/25 10:55
Last Documented Vital Signs
Temp Pulse Resp BP Pulse Ox
97.8 F 66 22 98/72 92
02/23/25 10:55 02/23/25 10:55 02/23/25 12:08 02/23/25 10:55 02/23/25 11:53
Band Instrument Repairer consulted with Physician
Band Instrument Repairer consulted with physician?: Yes
Name of Physician Consulted: Diego
<Lee Cortez DO - Last Filed: 02/23/25 14:04>
Orders/Labs/Results
Orders:
Orders
02/23/25 11:50
Acetaminophen [Tylenol] 650 mg PO NOW STA
02/23/25 11:51
Finger(s)/Thumb 2 View Lt [CR Finger(s)/thumb Min 2 Vw Lt] Urgent
Comment:
Reason For Exam: pain /redness/swelling
02/23/25 11:55
Acetaminophen [Tylenol] 650 mg .ROUTE .STK-MED ONE
02/23/25 14:03
Prednisone [Deltasone] 40 mg PO NOW STA
Vital Signs
Initial and Last Documented VS:
Initial Vital Signs
Temp Pulse Resp BP Pulse Ox
97.8 F 66 18 98/72 92
02/23/25 10:55 02/23/25 10:55 02/23/25 10:55 02/23/25 10:55 02/23/25 10:55
Last Documented Vital Signs
Temp Pulse Resp BP Pulse Ox
97.8 F 66 22 98/72 92
02/23/25 10:55 02/23/25 10:55 02/23/25 12:08 02/23/25 10:55 02/23/25 11:53
<KADIE Logan - Last Filed: 02/23/25 14:19>
MDM/Problems Addressed
Differential Diagnosis Includes:
Not limited to tendinitis, arthritis, less likely septic
MDM/Problems Addressed:
Patient complains of left fifth finger discomfort since yesterday. He woke up this morning with increasing pain and swelling along with redness to the finger. Denies any fever chills he is nontoxic-appearing. He has been doing exercises with his
finger including flexion extension exercises. X-ray shows a calcification along the ulnar side of the head of the proximal phalanx concerning for possible calcific periarthritis. Patient does not have a history of gout. He has no acute distress
nontoxic. Patient evaluated physician he is on Eliquis however with inflammation likely arthritic in nature will give a short course of steroids. Symptoms are more consistent with arthritis less likely septic joint.
Chronic conditions affecting care:
On Eliquis
<KADIE Logan - Last Filed: 02/23/25 14:19>
*Radiology
Radiology exam reviewed: radiology read reviewed
*Pulse Oximetry
SaO2: 92
Oxygen Mode of Delivery: Room air
Patient hypoxic: no
*Critical Care Note
Total Time (30-74mins, 75-104mins- exclusive of procedures): Not Applicable
ED Attending Note
<KADIE Logan - Last Filed: 02/23/25 14:19>
-
Portions of this chart may have been created with voice recognition software.� Occasional wrong word or��sound alike� substitutions may have occurred due to the inherent limitations of voice recognition software.
<Lee Cortez DO - Last Filed: 02/23/25 14:04>
ED Attending Note
Patient seen and examined by attending physician: Yes
I performed the substantive portion of visit, reviewed & personally made and approve the management plan that is documented in note by myself or SUJATHA.: Yes
ED Attending Note:
Seen with HIGHWAY DESIGN ENGINEER examined independently
85-year-old male with atraumatic pain and swelling of his left small finger history of arthritis
Discharge Plan
Departure
Patient Disposition: Home (Routine Discharge)
Date of Disposition: 02/23/25
Time of Disposition: 14:16
Patient with high blood pressure during this ER visit?: No
Condition: Fair
Covid-19: Not Applicable
Discharge Problem:
Finger pain
Instructions: Muscle and Bone Pain (DC)
Prescriptions:
New
methylprednisolone [Medrol (Tim)] 4 mg tablets,dose pack
See Rx Instructions .ROUTE .COMPLEX Qty: 21 0RF
Rx Instructions:
for 6 days
No Action
tamsulosin 0.4 mg Capsule
0.4 mg PO BID
metoprolol succinate 25 mg Tablet Extended Release 24 Hr
25 mg PO HS
Eliquis 5 mg Tablet
5 mg PO BID
atorvastatin [Lipitor] 40 mg Tablet
80 mg PO QPM
escitalopram oxalate 10 mg tablet
10 mg PO DAILY
Trelegy Ellipta 100-62.5-25 mcg blister with device
1 inh INHALATION R DAILY
furosemide [Lasix] 40 mg tablet
40 mg PO BID Qty: 60 0RF
potassium chloride 20 mEq tablet extended release
20 meq PO QPM
potassium chloride 20 mEq Tablet Extended Release
40 meq PO DAILY
mirabegron [Myrbetriq] 50 mg Tablet Extended Release 24 Hr
50 mg PO DAILY
Jardiance 10 mg Tablet
10 mg PO DAILY
levetiracetam [Keppra] 500 mg tablet
500 mg PO BID Qty: 60 0RF
Referrals:
[facility], [Other]
Glenn Hanson MD [Family Provider, Family Practice]
Activity Restrictions/Additional Instructions:
Symptoms are likely consistent with arthritis
As discussed you are given 1 dose of steroids here in the ER and a prescription was sent to her pharmacy for the next 6 days. Start tomorrow. Take with food. Follow-up closely with your family doctor the next 2 days for reevaluation. Return if
any worsening of symptoms or increased pain swelling redness fever chills
Interventions
Interventions:
*Risk Screen - Suicide Last Done: 02/23/25 10:55
*General Assessment Last Done: 02/23/25 11:36
*Neglect/Abuse Screening Last Done: 02/23/25 11:36
*ED- Fall Risk Assessment Last Done: 02/23/25 11:36
*ED COVID-19 Vaccine History Last Done: 02/23/25 11:36
ED-Musculoskeletal Assessment Last Done: 02/23/25 11:36
Discharge Date and Time
Print Language: LEBANESE
[2025-02-23] MEDS: TYLENOL 650 MG PO (11:57)
== END 2025-02-23 14:32 | disposition home or self-care (01) ==
LOC: EMR 10:53
PROVIDERS: EMERGENCY PHYSICIAN Emergency Medicine; FAMILY PHYSICIAN Family Medicine
DX: M79.645 Pain in left finger(s) (principal); M79.89 Other specified soft tissue disorders; I11.0 Hypertensive heart disease with heart failure; I50.9 Heart failure, unspecified; J44.9 Chronic obstructive pulmonary disease, unspecified; Z87.891 Personal history of nicotine dependence; Z99.81 Dependence on supplemental oxygen; E11.9 Type 2 diabetes mellitus without complications; E78.00 Pure hypercholesterolemia, unspecified; Z79.01 Long term (current) use of anticoagulants; Z86.73 Personal history of transient ischemic attack (TIA), and cerebral infarction without residual deficits; Z95.2 Presence of prosthetic heart valve
CPT/HCPCS: 99283; 73140

== ENCOUNTER 2025-03-17 12:09 | Outpatient (RCR) | payer OTHER, SELFPAY | END 2025-03-17 23:59 | disposition home or self-care (01) | LOC: ROT 12:09 | PROVIDERS: ATTENDING PHYSICIAN Registered Nurse Critical Care Medicine; FAMILY PHYSICIAN Family Medicine | DX: R56.9 Unspecified convulsions (principal); R29.898 Other symptoms and signs involving the musculoskeletal system; Z73.6 Limitation of activities due to disability; R26.2 Difficulty in walking, not elsewhere classified; M62.81 Muscle weakness (generalized); R20.2 Paresthesia of skin; Z86.73 Personal history of transient ischemic attack (TIA), and cerebral infarction without residual deficits | CPT/HCPCS: 97018; 97110; 97112; 97116; 97530; 97535 ==

== ENCOUNTER 2025-04-15 08:42 | Outpatient (RCR) | payer OTHER, SELFPAY | END 2025-04-15 23:59 | disposition home or self-care (01) | LOC: ROT 08:42 | PROVIDERS: ATTENDING PHYSICIAN Registered Nurse Critical Care Medicine; FAMILY PHYSICIAN Family Medicine | DX: R56.9 Unspecified convulsions (principal); R29.898 Other symptoms and signs involving the musculoskeletal system; Z73.6 Limitation of activities due to disability; R26.2 Difficulty in walking, not elsewhere classified; M62.81 Muscle weakness (generalized); R20.2 Paresthesia of skin; Z86.73 Personal history of transient ischemic attack (TIA), and cerebral infarction without residual deficits | CPT/HCPCS: 97010; 97110; 97112; 97530; 97535 ==

== ENCOUNTER → 2025-04-25 09:10 | Outpatient (REF) | payer OTHER, SELFPAY ==
--- NOTE | 2025-04-25 10:10 | CARDSERVDEF ---
Echocardiogram with Definity completed after protocol screening completed. Allergies verified.
Patent IV site: _RA___
IV site flushed with 0.9% NaCl pre and post administration.
Diluted bolus method utilized to enhance visualization of ventricular rosario.
Total volume given: ___3_ mL
Patient tolerated all procedures well without complications.
== END ==
LOC: RCS 09:10
PROVIDERS: ATTENDING PHYSICIAN Internal Medicine Cardiovascular Disease; FAMILY PHYSICIAN Family Medicine
DX: I35.0 Nonrheumatic aortic (valve) stenosis (principal)
CPT/HCPCS: 93306

== ENCOUNTER 2025-05-13 06:53 | Outpatient (RCR) | payer OTHER, SELFPAY | END 2025-05-13 23:59 | disposition home or self-care (01) | LOC: ROT 06:53 | PROVIDERS: ATTENDING PHYSICIAN Registered Nurse Critical Care Medicine; FAMILY PHYSICIAN Family Medicine | DX: R29.898 Other symptoms and signs involving the musculoskeletal system (principal); Z73.6 Limitation of activities due to disability; R56.9 Unspecified convulsions; R26.2 Difficulty in walking, not elsewhere classified; Z86.73 Personal history of transient ischemic attack (TIA), and cerebral infarction without residual deficits; I69.354 Hemiplegia and hemiparesis following cerebral infarction affecting left non-dominant side; M62.81 Muscle weakness (generalized); R20.2 Paresthesia of skin | CPT/HCPCS: 97110; 97112; 97530; 97535 ==

== ENCOUNTER → 2025-06-02 09:18 | Outpatient (REF) | payer OTHER, SELFPAY | LOC: WDC 09:18 | PROVIDERS: ATTENDING PHYSICIAN Physician Assistant Medical | DX: N64.4 Mastodynia (principal) | CPT/HCPCS: 76642; 77062; 77066 ==

== ENCOUNTER 2025-06-11 06:39 | Outpatient (RCR) | payer OTHER, SELFPAY | END 2025-06-11 10:32 | disposition home or self-care (01) | LOC: ROT 06:39 | PROVIDERS: ATTENDING PHYSICIAN Registered Nurse Critical Care Medicine; FAMILY PHYSICIAN Family Medicine | DX: R29.898 Other symptoms and signs involving the musculoskeletal system (principal); Z73.6 Limitation of activities due to disability; R56.9 Unspecified convulsions; I69.354 Hemiplegia and hemiparesis following cerebral infarction affecting left non-dominant side; Z86.73 Personal history of transient ischemic attack (TIA), and cerebral infarction without residual deficits; R26.2 Difficulty in walking, not elsewhere classified; M62.81 Muscle weakness (generalized); R20.2 Paresthesia of skin | CPT/HCPCS: 97110 ==